=== PATIENT | female | born 1960 | race Caucasian/White ===

== ENCOUNTER 2021-04-23 12:43 | Outpatient (REF) | payer OTHER, SELFPAY ==
--- NOTE | ~2021-04-23 | MM_ITS ---
EXAMINATION: MM SCREENING DIGITAL BREAST TOMOSYNTHESIS, BILATERAL CLINICAL INFORMATION: Screening. Asymptomatic. The lifetime risk of breast cancer based on the Tyrer-Cuzick Model is 15%. COMPARISON: Mammography: 03/14/2020, 01/11/2019, 12/31/2017 TECHNIQUE: Digital breast tomosynthesis is performed in both the craniocaudal and mediolateral oblique views along with computer-aided detection (CAD). Synthesized 2D images are generated from the tomosynthesis. FINDINGS: There are scattered areas of fibroglandular density (ACR BI-RADS breast composition Category b). There are no significant masses, abnormal calcifications, or other abnormalities. Parenchymal pattern is similar to prior studies. No developing density. Skin contours are smooth. MM/MM tomosynthesis screening BI IMPRESSION: No mammographic evidence of malignancy. ASSESSMENT: BI-RADS 1: Negative RECOMMENDATION: Routine annual mammography screening. This patient's information was entered into a reminder system with a target due date for their next mammogram.
== END 2021-04-23 12:44 | disposition home or self-care (01) ==
LOC: HO.MAMMO 12:43
PROVIDERS: PCP Internal Medicine; Visit Provider Internal Medicine
DX: Z12.31 Encounter for screening mammogram for malignant neoplasm of breast (principal)
CPT/HCPCS: 77063; 77067

== ENCOUNTER 2022-04-01 07:47 | Outpatient (REF) | payer OTHER, SELFPAY ==
[2022-04-01 10:48] LABS: Hematocrit 36.9 % (37.0-47.0); Hemoglobin 12.2 g/dl (12.0-16.0); Mean Corpuscular HGB Conc 33.1 g/dl (31.0-35.0); Mean Corpuscular Hemoglobin 31.3 pg (27.0-33.0); Mean Corpuscular Volume 94.6 fL (80.0-98.0); Mean Platelet Volume 10.4 fL (9.4-12.3); Platelet Count 378 X10*3/uL (160-400); Red Cell Distribution Width 12.7 % (11.0-16.0); White Blood Count 8.6 X10*3/uL (4.8-10.8)
[2022-04-01 10:56] LABS: Alanine Aminotransferase 10 U/L (0-31); Albumin Level 4.5 g/dL (3.5-5.0); Alkaline Phosphatase 66 U/L (39-117); Anion Gap 13 (12-20); Aspartate Amino Transferase 13 U/L (5-31); Bilirubin Total 0.6 mg/dL (0.0-1.0); Blood Urea Nitrogen 10 mg/dL (9-16); Calcium 9.3 mg/dL (8.4-10.2); Carbon Dioxide 28 mmol/L (22-29); Chloride 103 mmol/L (96-108); Cholesterol 201 mg/dL; Estimated Glomerular Filt Rate > 60; Glucose Fasting 94 mg/dL (60-99); HDL Cholesterol 44 mg/dL; LDL Cholesterol Calculated 145 mg/dl; Potassium 4.2 mmol/L (3.3-5.1); Sodium 140 mmol/L (135-145); Total Protein 7.3 g/dL (6.5-8.0); Triglycerides 62 mg/dL
[2022-04-01 11:19] LABS: TSH reflex Free T4 1.77 uIU/mL (0.32-4.0)
== END 2022-04-01 07:48 | disposition home or self-care (01) ==
LOC: HO.10HDL 07:47
PROVIDERS: Visit Provider Physician Assistant
DX: Z13.29 Encounter for screening for other suspected endocrine disorder (principal); Z13.220 Encounter for screening for lipoid disorders
CPT/HCPCS: 36415; 80053; 80061; 84443; 85027

== ENCOUNTER 2022-04-04 09:38 | Outpatient (REF) | payer OTHER, SELFPAY ==
--- NOTE | ~2022-04-04 | XR_ITS ---
EXAMINATION: XR CHEST CLINICAL INFORMATION: Exposed to tobacco. COMPARISON: Chest x-ray 07/02/2018 TECHNIQUE: 2 views of the chest were obtained. FINDINGS: No significant abnormality is noted involving the heart, lungs, mediastinum, bony thorax or soft tissues. XR/XR chest 2V IMPRESSION: Unremarkable chest examination.
== END 2022-04-04 09:39 | disposition home or self-care (01) ==
LOC: HO.XRAY 09:38
PROVIDERS: PCP Internal Medicine; Visit Provider Physician Assistant
DX: Z77.22 Contact with and (suspected) exposure to environmental tobacco smoke (acute) (chronic) (principal)
CPT/HCPCS: 71046

== ENCOUNTER 2022-04-25 09:38 | Outpatient (REF) | payer OTHER, SELFPAY ==
--- NOTE | ~2022-04-25 | MM_ITS ---
EXAMINATION: MM SCREENING DIGITAL BREAST TOMOSYNTHESIS, BILATERAL CLINICAL INFORMATION: Screening. Asymptomatic. The lifetime risk of breast cancer based on the Tyrer-Cuzick Model is 14%. COMPARISON: Mammography: 04/23/2021, 03/14/2020, 01/11/2019 TECHNIQUE: Digital breast tomosynthesis is performed in both the craniocaudal and mediolateral oblique views along with computer-aided detection (CAD). Synthesized 2D images are generated from the tomosynthesis. FINDINGS: There are scattered areas of fibroglandular density (ACR BI-RADS breast composition Category b). There are no significant masses, abnormal calcifications, or other abnormalities. There is no developing density or architectural abnormality. The axilla and skin contours are unremarkable. No significant changes. MM/MM tomosynthesis screening BI IMPRESSION: No mammographic evidence of malignancy. ASSESSMENT: BI-RADS 1: Negative RECOMMENDATION: Routine annual mammography screening. This patient's information was entered into a reminder system with a target due date for their next mammogram.
== END 2022-04-25 09:39 | disposition home or self-care (01) ==
LOC: HO.MAMMO 09:38
PROVIDERS: PCP Internal Medicine; Visit Provider Internal Medicine
DX: Z12.31 Encounter for screening mammogram for malignant neoplasm of breast (principal)
CPT/HCPCS: 77063; 77067

== ENCOUNTER 2022-05-24 07:51 | Outpatient (REF) | payer OTHER, SELFPAY ==
[2022-05-24 08:46] LABS: Hematocrit 39.2 % (37.0-47.0); Mean Corpuscular HGB Conc 33.2 g/dl (31.0-35.0); Mean Corpuscular Hemoglobin 30.9 pg (27.0-33.0); Mean Corpuscular Volume 93.1 fL (80.0-98.0); Mean Platelet Volume 9.9 fL (9.4-12.3); Platelet Count 319 X10*3/uL (160-400); Red Blood Count 4.21 X10*6/uL (4.20-5.50); Red Cell Distribution Width 12.2 % (11.0-16.0); White Blood Count 6.8 X10*3/uL (4.8-10.8)
[2022-05-24 09:10] LABS: Iron 84 mcg/dL (30-160); Percent Iron Saturation 22 % (15-50); Total Iron Binding Capacity 376 mcg/dL (228-428); Unsaturated Iron Binding 292 ug/dL
[2022-05-24 09:34] LABS: Ferritin 75 ng/mL (10-250)
[2022-05-24 16:10] LABS: Folate 14.7 ng/mL (> or = 4.0); Vitamin B12 1313 pg/mL (200-900)
== END 2022-05-24 07:52 | disposition home or self-care (01) ==
LOC: HO.LAB 07:51
PROVIDERS: PCP Internal Medicine; Visit Provider Physician Assistant
DX: E53.8 Deficiency of other specified B group vitamins (principal); D50.9 Iron deficiency anemia, unspecified
CPT/HCPCS: 36415; 82607; 82728; 82746; 83540; 85027

== ENCOUNTER 2023-04-01 08:16 | Outpatient (AMB) | payer OTHER, SELFPAY ==
[2023-04-01 08:26] VITALS: BP 110/80; PULSE 78; O2SAT 98; BMI 22.0
--- NOTE | 2023-04-01 08:26 | A.OFFPC_ITS ---
Vital Signs 04/01/23 08:26 Height 5 ft 3 in Weight 124 lb BMI 22.0 BP 110/80 Blood Pressure Location Lt brachial Position Sitting Pulse 78 Pulse Source Pulse Oximeter Pulse Oximetry (%) 98 Oxygen Delivery Method Room Air Intake Visit Reasons: Annual Exam Marketing Assistant Required: No Accompanied by: Self / Same As Patient Allergies No Known Allergies [No Known Allergies*] Allergy (Verified 04/01/23 08:33) Medication List - Last Reconciled 04/01/23 by Jefry Story PA-C cholecalciferol (vitamin D3) 125 mcg PO DAILY cyanocobalamin (vitamin B-12) 1,000 mcg PO DAILY latanoprost 0.005% 1 drp ophthalmic (eye) QPM vitamin E (dl, acetate) 400 units PO TID Tobacco use date assessed: 04/01/23 Dental Screening Dental Screen Date: 04/01/23 Did you have a dental visit in the last 12 months?: Yes Did you have a dental problem in the last 6 months where you did not have access to dental care?: No Was dental information given to patient?: Patient has dentist HPI Annual Exam HPI Details patient is a 62-year-old female here today for a routine annual physical.? This is my 2nd time meeting this 62-year-old female. ? Patient has a past medical history significant for glaucoma and is followed by an account engineer. .. .. Anxiety as much improved on its own, has been exercising more in eating better. Had not had to use any lorazepam ? Colorectal cancer screen: colonoscopy done 2014 polyp found benign results repeat 10 years. .. ?mammogram:? done in April 2022 BI-RADS 1 ?vaccines:? 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 1. Little interest or pleasure in doing things: nearly every day 2. Feeling down, depressed, or hopeless: nearly every day 3. Trouble falling or staying asleep, or sleeping too much: several days 4. Feeling tired or having little energy: not at all 5. Poor appetite or overeating: several days 6. Feeling bad about yourself - or that you are a failure or have let yourself or your family down: not at all 7. Trouble concentrating on things, such as reading the newspaper or watching television: not at all 8. Moving or speaking so slowly that other people could have noticed. Or the opposite - being so fidgety or restless that you have been moving around a lot more than usual: not at all 9. Thoughts that you would be better off or of hurting yourself in some way: not at all Total score: 8 Depression Screening Interpretation: Negative Source: Developed by Drs. Naseem Hammer, Martha Low, Jesse Tran and colleagues, with an educational anders from [employer]. Thrive Questionnaire Date Thrive assessed: 04/01/23 I am a: Patient What is your living situation today?: I have a steady place to live Within the past 12 months, did the food you bought not last and you didn't have the money to get more?: Never true Within the past 12 months, did you worry whether your food would run out before you got money to buy more?: Never true Do you have trouble paying for medicines?: No Do you have trouble getting transportation to medical appointments?: No Do you have trouble paying your heating and electricity bill?: No Do you have trouble taking care of your child, family member or friend?: No Do you have trouble with day-to-day activities such as bathing, preparing meals, shopping, managing finances, etc.?: No Are you currently unemployed and looking for a job?: No Are you interested in more education?: No Please select the resources that you would like help with: None Currently or been in a relationship where the following occur: no concerns reported AUDIT C Alcohol Use Questionnaire (AUDIT-C) 1. How often do you have a drink containing alcohol?: Monthly or less 2. How many drinks containing alcohol do you have on a typical day when you are drinking?: 1 or 2 3. How often do you have six or more drinks on one occasion?: Never Total Score: 1 DARLYN-7 AMB Questionnaire DARLYN-7 Date DARLYN - 7 assessed: 04/01/23 Feeling nervous, anxious, or on edge: 1 = Several days Not being able to stop or control worryin = Several days Worrying too much about different things: 1 = Several days Trouble relaxin = Several days Being so restless that it is hard to sit still: 1 = Several days Becoming easily annoyed or irritable: 1 = Several days Feeling afraid as if something awful might happen: 1 = Several days Total DARLYN-7 score (0-4 normal; 5-9 mild; 10-14 moderate; 15-21 severe): 7 Source: Developed by Drs. Naseem Hammer, Martha Low, Jesse Tarn and colleagues, with an educational anders from [employer]. DARLYN-7 Assessment Billing DARLYN-7 Assessment Tool: DARLYN-7 Assessment 57418 Review of Systems Const Denies body aches, Denies chills, Denies excessive sweating, Denies fatigue, Denies fever(s) and Denies headache(s) Eyes Denies blurry vision ENT Denies dysphagia, Denies vertigo, Denies dizziness, Denies headache(s), Denies hearing loss and Denies tinnitus Card Denies chest pain, Denies chest pain with activity, Denies syncope, Denies irregular heart rhythm and Denies dyspnea Resp Denies chest congestion, Denies cough, Denies hemoptysis, Denies dyspnea and Denies wheezing GI Denies abdominal pain, Denies melena, Denies hematochezia, Denies coffee ground emesis, Denies dysphagia, Denies diarrhea, Denies nausea and Denies vomiting Denies urinary frequency, Denies dysuria, Denies urinary hesitancy and Denies urinary urgency Musc Denies arthralgias, Denies limited range of motion, Denies muscle cramps and Denies muscle weakness Skin/Breast Denies rash and Denies skin ulcer Neuro Denies Abnormal speech present, Denies confusion, Denies vertigo, Denies dizziness, Denies syncope, Denies headache(s), Denies memory loss and Denies seizure-like activity Psych Denies anxiety, Denies confusion, Denies depression, Denies memory loss, Denies panic attacks and Denies paranoia Endo Denies excessive sweating, Denies fatigue, Denies flushing, Denies polydipsia and Denies polyuria Aller/Immun Denies wheezing Physical exam (Primary Care) Vital Signs: Last Vital Signs Pulse 78 04/01/23 08:26 BP 110/80 04/01/23 08:26 Pulse Ox 98 04/01/23 08:26 Oxygen Delivery Method Room Air 04/01/23 08:26 BMI result Body Mass Index 22.0 Tobacco/Smoking Status: Tobacco use Status Tobacco use date assessed 04/01/23 04/01/23 08:31 Patient Tobacco Use Status Never used Tobacco 04/01/23 08:31 e-Cigarette/Vaping Use Never Used 04/01/23 08:31 PHQ-9: PHQ-9 Score PHQ-9: Total score 8 04/01/23 08:36 Depression Screening Interpretation: Negative Thrive Assessment: Date of Thrive Assessment Date Thrive assessed 04/01/23 04/01/23 08:31 Currently or been in a relationship where the following occur: no concerns reported Const General: cooperative, comfortable, no acute distress, alert and awake; No confusion Orientation/consciousness: oriented to person, oriented to place, patient oriented x3 and No confusion HENMT Head: Yes normocephalic Ears: external ears normal and TM's normal bilaterally Face and sinus: No sinus tenderness Mouth: Normal oral and palatal mucosa present and tongue normal Teeth and gingiva: dentition normal and gingiva normal Throat: Yes posterior oropharynx normal, Yes tonsils normal and Yes uvula midline Eyes Conjunctivae: conjunctivae normal Sclerae: sclerae normal Pupils: Equal, round and reactive pupils present EOM: EOMs intact bilaterally Direct Ophthalmoscopy: No no photophobia Neck Neck: Yes no lymphadenopathy, No tender and Yes no JVD Thyroid: Thyroid normal Carotids: no bruits Chest Chest palpation & inspection: no tenderness Resp Effort & Inspection: normal respiratory effort, no audible wheezes, not labored and no stridor Auscultation: no crackles, no rales, no rhonchi and no wheezes Cardio Jugular venous distension: no JVD Rate: regular rate, not bradycardic and not tachycardic Rhythm: regular rhythm Bruits: no carotid bruits Peripheral pulses: Peripheral pulses 2+ throughout GI Inspection: Yes normal to inspection, No abdominal wall ecchymosis and No visible herniation Palpation (GI): Soft to palpation, nontender, no guarding, not rigid and No hepatosplenomegaly present Auscultation: normoactive bowel sounds General: Yes no CVA tenderness Back/Spine/Pelvis Back: no CVA tenderness and No back tenderness Cervical Spine: cervical ROM normal Thoracic/Lumbar Spine: thoracic and lumbar spine normal to inspection, straight leg raise negative bilaterally, No thoraco-lumbar ROM limited and No lumbar spinal tenderness Skin Lesions: no lesions Rashes: no rashes Wounds: no wounds Neuro General: oriented to person, oriented to place, patient oriented x3, CN's II-XI intact bilaterally and No confusion Cranial nerves: Yes Equal, round and reactive pupils present and Yes Normal accommodation reflex present Cognition (Neuro): normal cognition Speech: No Abnormal speech present Gait exam (Neuro): Normal gait present Motor exam (neuro): 5/5 motor strength present throughout Extrem Right upper extremity: full ROM; no cyanosis Left upper extremity: full ROM; no cyanosis Right lower extremity: no edema Left lower extremity: no edema Psych Appearance: grossly normal Mental Status: mental status grossly normal Affect: normal affect Attitude: cooperative Thought process: Normal thought process present Assessment and Plan Assessment & Plan (1) Annual physical exam: Code(s): Z00.00 - Encounter for general adult medical examination without abnormal findings (2) Glaucoma: Code(s): H40.9 - Unspecified glaucoma Qualifiers: Glaucoma stage: mild stage Glaucoma type: open-angle Laterality: bilateral Open angle glaucoma type: primary Qualified Code(s): H40.1131 - Primary open-angle glaucoma, bilateral, mild stage Plan: Patient followed by eye doctor and continues on glaucoma eyedrops with good effect. (3) Elevated vitamin B12 level: Code(s): R74.8 - Abnormal levels of other serum enzymes Plan: Most recent labs showing elevated B12 level, will recheck (4) Screening for diabetes mellitus (DM): Code(s): Z13.1 - Encounter for screening for diabetes mellitus Orders: Orders Vitamin B12 and Folate Today E53.8 - Deficiency of other specified B group vitamins, R74.8 - Abnormal levels of other serum enzymes Comprehensive [place]. Panel Fast Today Z13.1 - Encounter for screening for diabetes mellitus Complete Blood Count no Diff Today D64.9 - Anemia, unspecified Coding Level of Care Code Est Pt Prev Care 40-64y(80552) Diagnoses Annual physical exam Z00.00 Glaucoma H40.1131 Glaucoma stage: mild stage Glaucoma type: open-angle Laterality: bilateral Open angle glaucoma type: primary Elevated vitamin B12 level R74.8 Screening for diabetes mellitus (DM) Z13.1 Additional Codes DARLYN-7 Assessment Billing - DARLYN-7 Assessment Tool: DARLYN-7 Assessment [id number] ([id number])
== END 2023-04-01 08:48 | disposition home or self-care (01) ==
PROVIDERS: PCP Internal Medicine; Visit Provider Physician Assistant
DX: Z00.00 Encounter for general adult medical examination without abnormal findings (principal); H40.1131 Primary open-angle glaucoma, bilateral, mild stage; R74.8 Abnormal levels of other serum enzymes; Z13.1 Encounter for screening for diabetes mellitus
CPT/HCPCS: 99396

== ENCOUNTER 2023-04-23 07:39 | Outpatient (REF) | payer OTHER, SELFPAY ==
[2023-04-23 10:55] LABS: Hematocrit 37.8 % (37.0-47.0); Hemoglobin 12.5 g/dl (12.0-16.0); Mean Corpuscular HGB Conc 33.1 g/dl (31.0-35.0); Mean Corpuscular Hemoglobin 31.4 pg (27.0-33.0); Mean Platelet Volume 10.8 fL (9.4-12.3); Platelet Count 340 X10*3/uL (160-400); Red Blood Count 3.98 X10*6/uL (4.20-5.50); Red Cell Distribution Width 12.3 % (11.0-16.0); White Blood Count 5.8 X10*3/uL (4.8-10.8)
[2023-04-23 11:14] LABS: Alanine Aminotransferase 12 U/L (0-31); Albumin Level 4.4 g/dL (3.5-5.0); Alkaline Phosphatase 60 U/L (39-117); Anion Gap 12 (12-20); Aspartate Amino Transferase 17 U/L (5-31); Bilirubin Total 0.6 mg/dL (0.0-1.0); Blood Urea Nitrogen 14 mg/dL (9-16); Calcium 9.8 mg/dL (8.4-10.2); Carbon Dioxide 27 mmol/L (22-29); Chloride 105 mmol/L (96-108); Estimated Glomerular Filt Rate > 60; Glucose Fasting 95 mg/dL (60-99); Sodium 140 mmol/L (135-145); Total Protein 7.4 g/dL (6.5-8.0)
[2023-04-23 11:40] LABS: Folate 12.4 ng/mL (> or = 4.0); Vitamin B12 586 pg/mL (200-900)
== END 2023-04-23 07:40 | disposition home or self-care (01) ==
LOC: HO.10HDL 07:39
PROVIDERS: Visit Provider Physician Assistant
DX: Z13.1 Encounter for screening for diabetes mellitus (principal); E53.8 Deficiency of other specified B group vitamins; R74.8 Abnormal levels of other serum enzymes; D64.9 Anemia, unspecified
CPT/HCPCS: 36415; 80053; 82607; 82746; 85027

== ENCOUNTER 2023-04-30 09:14 | Outpatient (REF) | payer OTHER, SELFPAY ==
--- NOTE | ~2023-04-30 | MM_ITS ---
EXAMINATION: MM SCREENING DIGITAL BREAST TOMOSYNTHESIS, BILATERAL CLINICAL INFORMATION: Screening. Asymptomatic. COMPARISON: Mammography: 04/25/2022, 04/23/2021, 03/14/2020, and dating back to 2012. TECHNIQUE: Digital breast tomosynthesis is performed in both the craniocaudal and mediolateral oblique views along with computer-aided detection (CAD). Synthesized 2D images are generated from the tomosynthesis. FINDINGS: There are scattered areas of fibroglandular density (ACR BI-RADS breast composition Category b). There are no suspicious masses, suspicious grouped calcifications, or areas of architectural distortion. The parenchymal pattern is stable from prior exams. There are few scattered benign calcifications. MM/MM tomosynthesis screening BI IMPRESSION: No mammographic evidence of malignancy. Stable benign findings. ASSESSMENT: BI-RADS BI-RADS 2 - Benign Findings RECOMMENDATION: Routine annual mammography screening. 1 year F/U This examination should not preclude the clinical evaluation of a suspicious palpable abnormality. This patient's information was entered into a reminder system with a target due date for their next mammogram.
== END 2023-04-30 09:15 | disposition home or self-care (01) ==
LOC: HO.MAMMO 09:14
PROVIDERS: PCP Internal Medicine; Visit Provider Internal Medicine
DX: Z12.31 Encounter for screening mammogram for malignant neoplasm of breast (principal)
CPT/HCPCS: 77063; 77067

== ENCOUNTER → 2023-04-30 09:30 | Outpatient (BNV) | payer OTHER, SELFPAY | PROVIDERS: PCP Internal Medicine; Visit Provider Radiology Diagnostic Radiology | DX: Z12.31 Encounter for screening mammogram for malignant neoplasm of breast (principal) | CPT/HCPCS: 77063; 77067 ==

== ENCOUNTER 2024-04-06 08:13 | Outpatient (AMB) | payer BC, SELFPAY ==
--- NOTE | 2024-04-06 08:32 | A.OFFPC_ITS ---
Vital Signs 04/06/24 08:34 Height 5 ft 3 in Weight 134 lb 8 oz BMI 23.8 BP 130/72 Blood Pressure Location Lt brachial Position Sitting Pulse 74 Pulse Source Pulse Oximeter Pulse Oximetry (%) 95 Oxygen Delivery Method Room Air Intake Visit Reasons: Annual exam Intake Note: Patient is here today for a physical. Cocoa Mill Operator Required: No Psychosocial Rehabilitation Counselor: Not Required per policy Accompanied by: Self / Same As Patient Allergies No Known Allergies [No Known Allergies*] Allergy (Verified 04/06/24 08:39) Medication List - Last Reconciled 04/06/24 by Jefry Story PA-C cholecalciferol (vitamin D3) 125 mcg PO DAILY cyanocobalamin (vitamin B-12) 1,000 mcg PO DAILY latanoprost 0.005% 1 drp ophthalmic (eye) QPM Tobacco use date assessed: 04/06/24 Fall risk assessment: No Falls in past year Last assessed Fall Risk: 04/06/24 Dental Screening Dental Screen Date: 04/06/24 Did you have a dental visit in the last 12 months?: Yes Did you have a dental problem in the last 6 months where you did not have access to dental care?: No Was dental information given to patient?: Patient has dentist HPI Annual exam HPI Details patient is a 63-year-old female here today for a routine annual physical.? ? Patient has a past medical history significant for glaucoma and is followed by an slot machine key person. .. .. Anxiety as much improved on its own, has been exercising more in eating better. Had not had to use any lorazepam .. Borderline high cholesterol: Most recent lipid panel showing slightly elevated cholesterol 201. Will work on dietary modifications. ? Colorectal cancer screen: colonoscopy done 2014 polyp found benign results repeat 10 years. .. ?mammogram:? done in April 2023 BI-RADS 2 ?vaccines:? 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 1. Little interest or pleasure in doing things: not at all 2. Feeling down, depressed, or hopeless: not at all 3. Trouble falling or staying asleep, or sleeping too much: not at all 4. Feeling tired or having little energy: not at all 5. Poor appetite or overeating: not at all 6. Feeling bad about yourself - or that you are a failure or have let yourself or your family down: not at all 7. Trouble concentrating on things, such as reading the newspaper or watching television: not at all 8. Moving or speaking so slowly that other people could have noticed. Or the opposite - being so fidgety or restless that you have been moving around a lot more than usual: not at all 9. Thoughts that you would be better off or of hurting yourself in some way: not at all Total score: 0 Depression Screening Interpretation: Negative Depression Screening Done: Yes 53655 - PHQ-9 Billing: Yes Source: Developed by Drs. Naseem Hammer, Martha Low, Jesse Tran and colleagues, with an educational anders from [employer]. Thrive Questionnaire Date Thrive assessed: 04/06/24 I am a: Patient What is your living situation today?: I have a steady place to live Within the past 12 months, did the food you bought not last and you didn't have the money to get more?: Never true Within the past 12 months, did you worry whether your food would run out before you got money to buy more?: Never true Do you have trouble paying for medicines?: No Do you have trouble getting transportation to medical appointments?: No Do you have trouble paying your heating and electricity bill?: No Do you have trouble taking care of your child, family member or friend?: No Do you have trouble with day-to-day activities such as bathing, preparing meals, shopping, managing finances, etc.?: No Are you currently unemployed and looking for a job?: No Are you interested in more education?: No Currently or been in a relationship where the following occur: No concerns reported THRIVE Score: 0 AUDIT C Alcohol Use Questionnaire (AUDIT-C) 1. How often do you have a drink containing alcohol?: Monthly or less 2. How many drinks containing alcohol do you have on a typical day when you are drinking?: 1 or 2 Total Score: 1 DARLYN-7 AMB Questionnaire DARLYN-7 Date DARLYN - 7 assessed: 04/06/24 Feeling nervous, anxious, or on edge: 0 = Not at all Not being able to stop or control worryin = Not at all Worrying too much about different things: 0 = Not at all Trouble relaxin = Not at all Being so restless that it is hard to sit still: 0 = Not at all Becoming easily annoyed or irritable: 0 = Not at all Feeling afraid as if something awful might happen: 0 = Not at all Total DARLYN-7 score (0-4 normal; 5-9 mild; 10-14 moderate; 15-21 severe): 0 Source: Developed by Drs. Naseem Hammer, Martha Low, Jesse Tran and colleagues, with an educational anders from [employer]. DARLYN-7 Assessment Billing DARLYN-7 Assessment Tool: DARLYN-7 Assessment 40249 Review of Systems Const Denies body aches, Denies chills, Denies excessive sweating, Denies fatigue, Denies fever(s) and Denies headache(s) Eyes Denies blurry vision ENT Denies dysphagia, Denies vertigo, Denies dizziness, Denies headache(s), Denies hearing loss and Denies tinnitus Card Denies chest pain, Denies chest pain with activity, Denies syncope, Denies irregular heart rhythm and Denies dyspnea Resp Denies chest congestion, Denies cough, Denies hemoptysis, Denies dyspnea and Denies wheezing GI Denies abdominal pain, Denies melena, Denies hematochezia, Denies coffee ground emesis, Denies dysphagia, Denies diarrhea, Denies nausea and Denies vomiting Denies urinary frequency, Denies dysuria, Denies urinary hesitancy and Denies urinary urgency Musc Denies arthralgias, Denies limited range of motion, Denies muscle cramps and Denies muscle weakness Skin/Breast Denies rash and Denies skin ulcer Neuro Denies Abnormal speech present, Denies confusion, Denies vertigo, Denies dizzine ss, Denies syncope, Denies headache(s), Denies memory loss and Denies seizure- like activity Psych Denies anxiety, Denies confusion, Denies depression, Denies memory loss, Denies panic attacks and Denies paranoia Endo Denies excessive sweating, Denies fatigue, Denies flushing, Denies polydipsia and Denies polyuria Aller/Immun Denies wheezing Physical exam (Primary Care) BMI result Body Mass Index 23.8 Tobacco/Smoking Status: Tobacco use Status Tobacco use date assessed 04/01/23 07 08:31 Patient Tobacco Use Status Never used Tobacco 04/01/23 08:31 e-Cigarette/Vaping Use Never Used 04/01/23 08:31 Depression Screening Interpretation: Negative Thrive Assessment: Date of Thrive Assessment Date Thrive assessed 04/01/23 07 08:31 Currently or been in a relationship where the following occur: No concerns reported Const General: cooperative, comfortable, no acute distress, alert and awake; No confusion Orientation/consciousness: oriented to person, oriented to place, patient oriented x3 and No confusion HENMT Head: Yes normocephalic Ears: external ears normal and TM's normal bilaterally Face and sinus: No sinus tenderness Mouth: Normal oral and palatal mucosa present and tongue normal Teeth and gingiva: dentition normal and gingiva normal Throat: Yes posterior oropharynx normal, Yes tonsils normal and Yes uvula midline Eyes Conjunctivae: conjunctivae normal Sclerae: sclerae normal Pupils: Equal, round and reactive pupils present EOM: EOMs intact bilaterally Direct Ophthalmoscopy: No no photophobia Neck Neck: Yes no lymphadenopathy, No tender and Yes no JVD Thyroid: Thyroid normal Carotids: no bruits Chest Chest palpation & inspection: no tenderness Resp Effort & Inspection: normal respiratory effort, no audible wheezes, not labored and no stridor Auscultation: no crackles, no rales, no rhonchi and no wheezes Cardio Jugular venous distension: no JVD Rate: regular rate, not bradycardic and not tachycardic Rhythm: regular rhythm Bruits: no carotid bruits Peripheral pulses: Peripheral pulses 2+ throughout GI Inspection: Yes normal to inspection, No abdominal wall ecchymosis and No visible herniation Palpation (GI): Soft to palpation, nontender, no guarding, not rigid and No hep atosplenomegaly present Auscultation: normoactive bowel sounds General: Yes no CVA tenderness Back/Spine/Pelvis Back: no CVA tenderness and No back tenderness Cervical Spine: cervical ROM normal Thoracic/Lumbar Spine: thoracic and lumbar spine normal to inspection, straight leg raise negative bilaterally, No thoraco-lumbar ROM limited and No lumbar spinal tenderness Skin Lesions: no lesions Rashes: no rashes Wounds: no wounds Neuro General: oriented to person, oriented to place, patient oriented x3, CN's II-XI intact bilaterally and No confusion Cranial nerves: Yes Equal, round and reactive pupils present and Yes Normal accommodation reflex present Cognition (Neuro): normal cognition Speech: No Abnormal speech present Gait exam (Neuro): Normal gait present Motor exam (neuro): 5/5 motor strength present throughout Extrem Right upper extremity: full ROM; no cyanosis Left upper extremity: full ROM; no cyanosis Right lower extremity: no edema Left lower extremity: no edema Psych Appearance: grossly normal Mental Status: mental status grossly normal Affect: normal affect Attitude: cooperative Thought process: Normal thought process present Assessment and Plan Assessment & Plan (1) Annual physical exam: Code(s): Z00.00 - Encounter for general adult medical examination without abnormal findings (2) Glaucoma: Code(s): H40.9 - Unspecified glaucoma Qualifiers: Glaucoma type: open-angle Open angle glaucoma type: primary Laterality: bilateral Glaucoma stage: mild stage Qualified Code(s): H40.1131 - Primary open-angle glaucoma, bilateral, mild stage Plan: Patient followed by eye doctor and continues on glaucoma eyedrops with good effect. (3) Elevated vitamin B12 level: Code(s): R74.8 - Abnormal levels of other serum enzymes Plan: Most recent labs showing elevated B12 level, will recheck (4) Screening for diabetes mellitus (DM): Code(s): Z13.1 - Encounter for screening for diabetes mellitus (5) Borderline high cholesterol: Code(s): E78.9 - Disorder of lipoprotein metabolism, unspecified Plan: Patient has a history of borderline high total cholesterol. No need for medication at this time. Patient has low CV risk She will work on lifestyle and dietary modifications. Orders: Orders Vitamin B12 and Folate Today E53.8 - Deficiency of other specified B group vitamins, R74.8 - Abnormal levels of other serum enzymes Comprehensive [place]. Panel Fast Today Z13.1 - Encounter for screening for diabetes mellitus Lipid Panel Today E78.9 - Disorder of lipoprotein metabolism, unspecified Complete Blood Count no Diff Today E78.9 - Disorder of lipoprotein metabolism, unspecified Referrals CREATIVE WRITER Referral Z12.4 - Encounter for screening for malignant neoplasm of cervix Coding Level of Care Code Est Pt Prev Care 40-64y(41350) Diagnoses Annual physical exam Z00.00 Primary open angle glaucoma (POAG) of both eyes, mild stage H40.1131 Glaucoma type: open-angle Open angle glaucoma type: primary Laterality: bilateral Glaucoma stage: mild stage Elevated vitamin B12 level R74.8 Screening for diabetes mellitus (DM) Z13.1 Borderline high cholesterol E78.9 Additional Codes DARLYN-7 Assessment Billing - DARLYN-7 Assessment Tool: DARLYN-7 Assessment 73906 ([id number])
[2024-04-06 08:34] VITALS: BP 130/72; PULSE 74; O2SAT 95; BMI 23.8
== END 2024-04-06 09:04 | disposition home or self-care (01) ==
PROVIDERS: PCP Internal Medicine; Visit Provider Physician Assistant
DX: Z00.00 Encounter for general adult medical examination without abnormal findings (principal); H40.1131 Primary open-angle glaucoma, bilateral, mild stage; R74.8 Abnormal levels of other serum enzymes; Z13.1 Encounter for screening for diabetes mellitus; E78.9 Disorder of lipoprotein metabolism, unspecified
CPT/HCPCS: 99396

== ENCOUNTER 2024-04-07 07:38 | Outpatient (REF) | payer BC, SELFPAY ==
[2024-04-07 11:17] LABS: Hematocrit 36.8 % (37.0-47.0); Hemoglobin 12.3 g/dl (12.0-16.0); Mean Corpuscular HGB Conc 33.4 g/dl (31.0-35.0); Mean Corpuscular Volume 92.7 fL (80.0-98.0); Mean Platelet Volume 10.3 fL (9.4-12.3); Platelet Count 316 X10*3/uL (160-400); Red Blood Count 3.97 X10*6/uL (4.20-5.50); Red Cell Distribution Width 13.2 % (11.0-16.0); White Blood Count 5.8 X10*3/uL (4.8-10.8)
[2024-04-07 11:28] LABS: Alanine Aminotransferase 12 U/L (0-31); Albumin Level 4.3 g/dL (3.5-5.0); Alkaline Phosphatase 63 U/L (39-117); Anion Gap 14 (12-20); Aspartate Amino Transferase 16 U/L (5-31); Bilirubin Total 0.5 mg/dL (0.0-1.0); Blood Urea Nitrogen 11 mg/dL (9-16); Calcium 9.7 mg/dL (8.4-10.2); Carbon Dioxide 25 mmol/L (22-29); Chloride 106 mmol/L (96-108); Cholesterol 190 mg/dL (<200); Estimated Glomerular Filt Rate > 60; Glucose Fasting 105 mg/dL (60-99); HDL Cholesterol 45 mg/dL (>40); LDL Cholesterol Calculated 133 mg/dL (<100); Potassium 3.7 mmol/L (3.3-5.1); Sodium 141 mmol/L (135-145); Total Protein 7.4 g/dL (6.5-8.0); Triglycerides 60 mg/dL (<150)
[2024-04-07 12:05] LABS: Folate 12.5 ng/mL (> or = 4.0); Vitamin B12 1557 pg/mL (200-900)
== END 2024-04-07 07:39 | disposition home or self-care (01) ==
LOC: HO.10HDL 07:38
PROVIDERS: Visit Provider Physician Assistant
DX: E78.9 Disorder of lipoprotein metabolism, unspecified (principal); Z13.1 Encounter for screening for diabetes mellitus; E53.8 Deficiency of other specified B group vitamins; R74.8 Abnormal levels of other serum enzymes
CPT/HCPCS: 36415; 80053; 80061; 82607; 82746; 85027

== ENCOUNTER 2024-05-02 09:34 | Outpatient (REF) | payer BC, SELFPAY ==
--- NOTE | ~2024-05-02 | MM_ITS ---
EXAMINATION: MM SCREENING DIGITAL BREAST TOMOSYNTHESIS, BILATERAL CLINICAL INFORMATION: Screening. Asymptomatic. COMPARISON: Mammography: This study is compared with prior exams dating back to 2019. TECHNIQUE: Digital breast tomosynthesis is performed in both the craniocaudal and mediolateral oblique views along with computer-aided detection (CAD). Synthesized 2D images are generated from the tomosynthesis. FINDINGS: There are scattered areas of fibroglandular density (ACR BI-RADS breast composition Category b). There are no significant masses, abnormal calcifications, or other abnormalities. MM/MM tomosynthesis screening BI IMPRESSION: No mammographic evidence of malignancy. ASSESSMENT: BI-RADS BI-RADS 1 - Negative RECOMMENDATION: Routine annual mammography screening. 1 year F/U This examination should not preclude the clinical evaluation of a suspicious palpable abnormality. This patient's information was entered into a reminder system with a target due date for their next mammogram. Electronically signed by: Kamini Briones MD 05/30/2024 09:52 AM EDT
== END 2024-05-02 09:35 | disposition home or self-care (01) ==
LOC: HO.MAMMO 09:34
PROVIDERS: PCP Internal Medicine; Visit Provider Internal Medicine
DX: Z12.31 Encounter for screening mammogram for malignant neoplasm of breast (principal)
CPT/HCPCS: 77063; 77067

== ENCOUNTER → 2024-05-02 09:45 | Outpatient (BNV) | payer BC, SELFPAY | PROVIDERS: PCP Internal Medicine; Visit Provider Radiology Diagnostic Radiology | DX: Z12.31 Encounter for screening mammogram for malignant neoplasm of breast (principal) | CPT/HCPCS: 77063; 77067 ==

== ENCOUNTER 2024-07-15 13:08 | Outpatient (AMB) | payer BC, SELFPAY ==
--- NOTE | 2024-07-15 13:12 | MHC.OFFVIS ---
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 She is doing well with no concerns. Urgency of urination and stress incontinence w/coughing w/muscle pull, hydrates w/ 33oz.or more a day. Up voiding 1-2x/night. Attempting to eat a healthy diet with calcium and vitamin D and stays active with exercise. Currently not sexually active, partner has health concerns. Denies any vaginal irritation, some dryness. STI testing offered; she declined. Last pap smear; approx. 10yrs. ago, normal history. Last mammogram; 2023. Colonoscopy is planned for 2024. Denies any family history of ovarian or colon cancer. FH breast cancer-mom. [facility] Medical History (Updated 07/15/24 @ 13:38 by Gabi Quiros CNM) Glaucoma Surgical History No pertinent past surgical history Family History (Updated 07/15/24 @ 13:16 by PANTERA Rico) Mother Lung cancer History of breast cancer Father Non-Hodgkin lymphoma Brother Myeloma Social History (Updated 04/06/24 @ 08:46 by Jefry Story PA-C) Housing: House Alcohol intake: current Alcohol intake frequency: holidays/special occasions only Alcohol type: wine Patient Tobacco Use Status: Never used Tobacco e-Cigarette/Vaping Use: Never Used Second Hand Smoke Exposure: No service: No Current occupational status: employed 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 Cognitive needs: No Hearing needs: No Vision needs: Yes Female Reproductive History Menstrual Menopause type: natural Total pregnancies: 0 Date of Mammogram: 05/02/24 Review of Systems Const All systems reviewed & are unremarkable except as noted in HPI and below Reports as per HPI Eyes Reports no additional complaints ENT Reports no additional complaints Card Reports no additional complaints Resp Reports no additional complaints GI Reports as per HPI and Reports no additional complaints Reports as per HPI Musc Reports no additional complaints Skin/Breast Reports as per HPI Neuro Reports no additional complaints Psych Reports no additional complaints Endo Reports no additional complaints Jac/Lymph Reports no additional complaints Aller/Immun Reports no additional complaints Physical Exam Vital Signs: Last Vital Signs BP 102/64 07/15/24 13:15 BMI result Body Mass Index 22.5 Const General: cooperative, healthy appearing, no acute distress, well developed and alert Orientation/consciousness: patient oriented x3 HEENT Head: Yes normal to inspection Eyes General: appearance normal, both eyes and all related structures Neck Neck: Yes normal visual inspection Thyroid: Thyroid normal Chest Chest palpation & inspection: normal inspection of the chest and other (no puckering, dimpling, peau de orange, retraction, discharge, masses) Breast/axilla inspection: normal inspection of the breasts Breast/axilla palpation: normal palpation of the breasts Resp Effort & Inspection: normal respiratory effort GI Inspection: Yes normal to inspection Palpation (GI): Soft to palpation Rectal Exam - Female: deferred Other: Very tense throughout pelvic exam General: Yes bladder normal to palpation External Female Exam: normal external appearance and normal appearance of the urethra Speculum Exam - Vagina: normal appearance of the vagina, normal palpation, normal vaginal discharge, vagina atrophic (Moderate, small introitus) and tenderness (Secondary to atrophy) Speculum Exam - Cervix: normal appearance of the cervix, normal palpation and Other cervical findings present (Atrophy, bled slightly with Pap) Bimanual exam- vagina & uterus: normal bimanual exam, normal palpation, uterine size normal, bladder normal to palpation, normal palpation and non-tender Bimanual Exam- Adnexa, other: no masses Skin General skin exam: no rashes or lesions noted Rashes: no rashes Neuro General: patient oriented x3 Cognition (Neuro): normal cognition Extrem General: Yes normal to inspection Psych Attitude: cooperative Thought process: Normal thought process present Assessment & Plan Assessment & Plan (1) Encounter for well woman exam with routine gynecological exam: Code(s): Z01.419 - Encounter for gynecological examination (general) (routine) without abnormal findings Category: Medical Plan Discussed: Current recommendations for pap smears per ASCCP guidelines. Breast awareness, periodic self breast exams and yearly mammogram. Maintain a healthy lifestyle, well balanced diet including Calcium 1,200 mg and Vitamin D 600 IU daily, and routine exercise. Vaginal atrophy and treatment options-defer she does not feel it is necessary at this time. Recommend urology referral for symptoms, she wants to see if they improve once her coughing settles down and will notify the office if she would like a referral sent in. Reviewed dietary avoidances for bladder triggers, hydrate mostly with water. She has a follow up with her primary care for the coughing and a chest x-ray plan today. Contact the office with any postmenopausal bleeding. Patient verbalizes understanding and agrees to the plan of care. She was given opportunity to ask questions and all questions were answered to the best of my ability. RTO in 1 year for annual guest relations receptionist exam. This note is constructed using voice recognition software. While every effort has been made to ensure accuracy, hopper filler errors may have been included. Orders: Orders PAP + HPV E6/E7 rfx 18/45 Today Z01.419 - Encounter for gynecological examination (general) (routine) without abnormal findings Coding Level of Care Code New Pt Prev Care >65yr (39800) Diagnoses Encounter for well woman exam with routine gynecological exam Z01.419
[2024-07-15 13:15] VITALS: BP 102/64; BMI 22.5
== END 2024-07-15 14:13 | disposition home or self-care (01) ==
LOC: HO.HWS 13:09
PROVIDERS: PCP Internal Medicine; Visit Provider Advanced Practice Midwife
DX: Z01.419 Encounter for gynecological examination (general) (routine) without abnormal findings (principal)
CPT/HCPCS: 99387

== ENCOUNTER 2024-07-15 13:08 | Outpatient (REF) | payer BC, SELFPAY ==
--- NOTE | ~2024-07-15 | XR_ITS ---
EXAMINATION: XR CHEST CLINICAL INFORMATION: Cough for 2 weeks. COMPARISON: Most recent chest radiograph dated 04/04/2022. TECHNIQUE: 2 views of the chest were obtained. FINDINGS: Diffuse interstitial prominence with patchy bilateral airspace opacities in the lung bases. Findings are new when compared to the prior examination. No pleural effusion or pneumothorax. Stable cardiomediastinal silhouette. XR/XR chest 2V IMPRESSION: Interstitial prominence with patchy bilateral airspace opacities, new when compared to the prior examination. Findings can be seen in the setting of an infectious or inflammatory process, including viral pneumonia. Electronically signed by: Elie Robles MD 07/15/2024 04:28 PM EDT
== END 2024-07-15 13:09 | disposition home or self-care (01) ==
LOC: HO.XRAY 13:08
PROVIDERS: Absent Provider Advanced Practice Midwife; PCP Internal Medicine; Visit Provider Physician Assistant
DX: R05.9 Cough, unspecified (principal)
CPT/HCPCS: 71046

== ENCOUNTER 2024-07-15 15:29 | Outpatient (REF) | payer BC, SELFPAY ==
[2024-07-18 11:57] LABS: HPV 16,18/45 See PAP report
== END 2024-07-15 15:30 | disposition home or self-care (01) ==
LOC: HO.LNP 15:29
PROVIDERS: Visit Provider Advanced Practice Midwife
DX: Z01.419 Encounter for gynecological examination (general) (routine) without abnormal findings (principal)
CPT/HCPCS: 87624; 88175

== ENCOUNTER 2024-07-28 16:13 | Outpatient (AMB) | payer BC, SELFPAY ==
--- NOTE | 2024-07-28 16:09 | A.OFFVIS_ITS ---
Intake Visit Reasons: TV pap results - [phone] Allergies No Known Allergies [No Known Allergies*] Allergy (Verified 07/15/24 13:15) HPI Comments Details: Tele clayton visit 16:24-16:40. I spent 16 minutes speaking with the patient on the phone plus an additional 5 minutes reviewing the chart and 5 minutes updating the medical record for a total of 26minutes. Patient unable to use video portion of phone, requested call back on land line. Patient presents via phone to discuss: Pap smear results and several questions and concerns. Prior Pap 10 years ago-no records available, patient reports all was negative. [facility] Medical History (Updated 07/28/24 @ 16:44 by Gabi Quiros CNM) History of abnormal cervical Pap smear Glaucoma Surgical History No pertinent past surgical history Family History (Updated 07/15/24 @ 13:16 by PANTERA Rico) Mother Lung cancer History of breast cancer Father Non-Hodgkin lymphoma Brother Myeloma Social History (Updated 04/06/24 @ 08:46 by Jefry Story PA-C) Housing: House Alcohol intake: current Alcohol intake frequency: holidays/special occasions only Alcohol type: wine Patient Tobacco Use Status: Never used Tobacco e-Cigarette/Vaping Use: Never Used Second Hand Smoke Exposure: No service: No Current occupational status: employed 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 Cognitive needs: No Hearing needs: No Vision needs: Yes Telehealth Telehealth Telehealth Platform: Telephone Location of provider rendering services: practice address Location of patient: address on file Patient Identification confirmed using: Name, : Yes Telehealth method: voice only Patient verbally consented to treatment: Yes Patient verbally consented to billing insurance company: Yes Patient informed of any privacy concerns related to visit: Yes Results Reviewed Results Reviewed: Name: YaraAnn A Age/Sex: 64/F Attending: Gabi Quiros CNM : 1960 Submitted by: Gabi Quiros CNM Copies to: MR #: [id number] Status: DEP REF Collected: 07/15/24 Location: [facility] Received: 07/18/24 Interpretation ABNORMAL PAP TEST. Satisfactory for evaluation, with mildly dysplastic squamous cells / HPV cytopathic change (MELANIE 1; low grade squamous intraepithelial lesion). Atrophic. HPV mRNA E6/E7: DETECTED This assay detects E6/E7 viral messenger RNA (mRNA) from 14 high-risk HPV types (16, 18, 31, 33, 35, 39, 45, 51, 52, 56, 58, 59, 66, 68) HPV Type 16 RNA: Not Detected HPV Type 18/45 RNA: Not Detected HPV testing performed by [facility], [place], [place]. See reference laboratory portion of the EMR for entire report. Clinical Information LMP: Unknown date Previous PAP test: Unknown date/findings Material Received ThinPrep-Vaginal/Cervical Electronically Signed By: Claire Mason MD 07/21/24 [id number] As of July 06, 2024, the PAP screening and HPV testing will be performed at [facility] (CLIA#[id number]), [address] [place] [address]. Testing for HPV was performed using the [employer]00 system. The presence of HPV is the female genital tract is associated with a number of diseases, including cervical carcinoma. The HPV DNA high risk pool test for HPV 31, 33, 35, 39, 45, 51, 52, 56, 58, 59, 66 and 68. The testing for HPV 16 and 18 genotypes has also been performed. A positive result indicates detection of nucleic acid sequences from one or more subtypes, whereas negative result indicates such sequences were not detected. Technical services and auto mated prescreening were performed by the [employer] [facility]. The Pap Test is a screening procedure with the inherent possibility of both false negative and false positive results. Results should be interpreted in the context of historic and current clinical findings. Reliability of the Pap Test is enhanced by performing the test on a regular repetitive basis. Patient: Ann Livingston Age/Sex: 64/F MR#: [id number] Page 1 of 1 Assessment & Plan Assessment & Plan (1) Abnormal Pap smear of cervix: Code(s): R87.619 - Unspecified abnormal cytological findings in specimens from cervix uteri Qualifiers: Abnormal Pap type: unspecified Qualified Code(s): R87.619 - Unspecified abnormal cytological findings in specimens from cervix uteri Plan Discussed: Pap smear results. Progression of abnormal changes from ASCUS to cervical cancer, HPV results, mode of transmission, screening methods, diagnostic procedures-colposcopy for further information evaluation and treatment plan of care, including LEEP procedures if indicated, or monitoring. She is agreeable to schedule the colposcopy with Dr. Farmer. All of her questions and concerns were addressed to the best of my ability and shared decision making. She is agreeable to the plan of care. This note is constructed using voice recognition software. While every effort has been made to ensure accuracy, territory service representative errors may have been included. Coding Level of Care Code Tele Est Pt Level 3 (42219) Diagnoses Abnormal cervical Papanicolaou smear, unspecified abnormal pap finding R87.619 Abnormal Pap type: unspecified
== END 2024-07-28 16:41 | disposition home or self-care (01) ==
LOC: HO.HWS 16:13
PROVIDERS: PCP Internal Medicine; Visit Provider Advanced Practice Midwife
DX: R87.619 Unspecified abnormal cytological findings in specimens from cervix uteri (principal)
CPT/HCPCS: 99442

== ENCOUNTER 2024-08-01 07:48 | Outpatient (AMB) | payer BC, SELFPAY ==
--- NOTE | 2024-08-01 07:49 | MHC.OFFVIS ---
Vital Signs 08/01/24 08:20 Height 5 ft 3 in Weight 123 lb BMI 21.8 BP 126/82 Intake Visit Reasons: Colposcopy Area Plant Manager Required: No Information Interpreted: non-clinical & clinical Industrial Gas Service Helper: Industrial Gas Service Helper Present (Priya MOTT) Accompanied by: Self / Same As Patient Allergies No Known Allergies [No Known Allergies*] Allergy (Verified 08/01/24 08:21) Post menopausal: Yes HPI Comments Details: Presenting for abnormal Pap smear showing low-grade LUIS, HPV E6 E7 positive, HPV 16/18/45 negative [facility] Medical History History of abnormal cervical Pap smear Glaucoma Surgical History No pertinent past surgical history Family History Mother Lung cancer History of breast cancer Father Non-Hodgkin lymphoma Brother Myeloma Social History Housing: House Alcohol intake: current Alcohol intake frequency: holidays/special occasions only Alcohol type: wine Patient Tobacco Use Status: Never used Tobacco e-Cigarette/Vaping Use: Never Used Second Hand Smoke Exposure: No service: No Current occupational status: employed 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 Cognitive needs: No Hearing needs: No Vision needs: Yes Review of Systems Const All systems reviewed & are unremarkable except as noted in HPI and below Physical Exam General: Yes no CVA tenderness External Female Exam: normal external appearance and normal appearance of the urethra Speculum Exam - Vagina: normal appearance of the vagina, normal palpation, no lesions and no masses Speculum Exam - Cervix: normal appearance of the cervix, normal palpation, no lesions, no masses and nontender Bimanual exam- vagina & uterus: normal bimanual exam, normal palpation, uterine size normal, normal palpation, uterine shape normal, No Cervical tenderness present and non-tender Bimanual Exam- Adnexa, other: normal adnexae Back/Spine/Pelvis Back: no CVA tenderness Office Procedures Colposcopy Colposcopy: Pre-Procedure Counseling: Before beginning the procedure, I conducted comprehensive counseling with the patient. We thoroughly discussed the procedure itself, including its details, alternatives, and all associated risks. This included but not limited to the following complications such as bleeding, infection, and injury to the vagina, bladder, and vessels, as well as the potential need for transfusion with all its associated risks. Subsequently, the patient sign the consent. Pap smear result: LSIL/HPV E6 E7 positive. Procedure: During the procedure, the following steps were performed: A speculum was inserted, and acetic acid was applied. Colposcopy was conducted, allowing visualization of the transformation zone. Acetowhite lesions were identified at the 1+4 o'clock position. Cervical biopsies were obtained from the 1+4 o'clock position. Vaginoscopy of the upper vagina revealed no evidence of aceto-white lesions. Hemostasis was achieved using Monsel solution, and the patient tolerated the procedure well. Post-Procedure Instructions: The patient was advised to promptly contact the office or the after hours answering service or go to the emergency room if experiencing a temperature exceeding 100.4?F, abdominal pain, nausea/vomiting, or bleeding. Additionally, the patient was instructed to abstain from vaginal intercourse and bathtub use. The patient confirmed understanding of these instructions. Discharge Instructions: The patient was instructed to schedule a follow-up appointment in 2 weeks for further evaluation and management. Please note that this note was generated using a voice recognition program, and errors may have occurred during lumber straightener. 16029-Ddclrzjnng of cervix including upper vagina and biopsy Procedure code (CPT) selection complete Assessment & Plan Assessment & Plan (1) LGSIL on Pap smear of cervix: Comment: HPV E6 E7 positive Code(s): R87.612 - Low grade squamous intraepithelial lesion on cytologic smear of cervix (LGSIL) Category: Medical Plan: Discussed with the patient the result of her abnormal pap, its significance, risk of progression, persistence, and regression. the false positive/negative rate of a Pap smear as a screening test in detecting cervical cancer and the indication for a diagnostic test -colposcopy, biopsy, endocervical curettage. The patient verbalized understanding and agreed with the plan, all questions answered. Colpo/biopsy done, see procedure note Orders: Orders AMB Colposcopy Today R87.612 - Low grade squamous intraepithelial lesion on cytologic smear of cervix (LGSIL) Coding Level of Care Code Procedure Only Diagnoses LGSIL on Pap smear of cervix R87.612 CPT Codes Colposcopy - CPT: 70857-Vxjfsjzbhy of cervix including upper vagina and biopsy ([id number])
[2024-08-01 08:20] VITALS: BP 126/82; BMI 21.8
== END 2024-08-01 09:27 | disposition home or self-care (01) ==
LOC: HO.HWS 07:48
PROVIDERS: PCP Internal Medicine; Visit Provider Obstetrics & Gynecology
DX: R87.612 Low grade squamous intraepithelial lesion on cytologic smear of cervix (LGSIL) (principal)
CPT/HCPCS: 57455

== ENCOUNTER 2024-08-01 07:48 | Outpatient (REF) | payer BC, SELFPAY | END 2024-08-01 07:49 | disposition home or self-care (01) | LOC: HO.LNP 07:48 | PROVIDERS: PCP Internal Medicine; Visit Provider Obstetrics & Gynecology | DX: R87.612 Low grade squamous intraepithelial lesion on cytologic smear of cervix (LGSIL) (principal) | CPT/HCPCS: 57455; 88305; 88342; 88360 ==

== ENCOUNTER 2024-08-04 15:25 | Outpatient (REF) | payer BC, SELFPAY | END 2024-08-04 15:26 | disposition home or self-care (01) | LOC: HO.XRAY 15:25 | PROVIDERS: PCP Internal Medicine; Visit Provider Physician Assistant | DX: J20.9 Acute bronchitis, unspecified (principal) | CPT/HCPCS: 71046 ==

== ENCOUNTER 2024-08-29 14:48 | Outpatient (AMB) | payer BC, SELFPAY ==
--- NOTE | 2024-08-29 14:51 | A.OFFVIS_ITS ---
Intake Visit Reasons: COLPO results Speech Pathology Assistant: Speech Pathology Assistant Present (Arina) Accompanied by: Self / Same As Patient Allergies No Known Allergies [No Known Allergies*] Allergy (Verified 08/29/24 14:51) HPI Comments Details: Presenting post colpo for follow-up. The patient is doing well with no complaints. The pathology showed the following: A. Cervix, 1 o'clock, biopsy: Squamous atrophy; no endocervical epithelium identified; multiple additional levels examined. B. Cervix, 4 o'clock, biopsy: Squamous atrophy; no endocervical epithelium identified [facility] Medical History History of abnormal cervical Pap smear Glaucoma Surgical History No pertinent past surgical history Family History Mother Lung cancer History of breast cancer Father Non-Hodgkin lymphoma Brother Myeloma Social History Housing: House Alcohol intake: current Alcohol intake frequency: holidays/special occasions only Alcohol type: wine Patient Tobacco Use Status: Never used Tobacco e-Cigarette/Vaping Use: Never Used Second Hand Smoke Exposure: No service: No Current occupational status: employed 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 Discussed with the patient the sensitivity specificity, positive and negative predictive value in detecting cervical cancer in addition discussed the regression, persistence and progression rates. Recommended co- testing in 12 months, if cytology and or HPV are abnormal will proceed was colposcopy biopsy and endocervical curettage, if lesions gets worse or stays persistent for 2 years will proceed with loop electric excision procedure. Instructions given to the patient to schedule a co test appointment in 1 year. All questions answered the patient verbalized understanding. Coding Level of Care Code Est Pt Level 3 (66434) Diagnoses LGSIL on Pap smear of cervix R87.612
== END 2024-08-29 15:13 | disposition home or self-care (01) ==
LOC: HO.HWS 14:48
PROVIDERS: PCP Internal Medicine; Visit Provider Obstetrics & Gynecology
DX: R87.612 Low grade squamous intraepithelial lesion on cytologic smear of cervix (LGSIL) (principal)
CPT/HCPCS: 99213

== ENCOUNTER 2024-09-12 09:07 | Outpatient (REF) | payer BC, SELFPAY ==
--- NOTE | ~2024-09-12 | XR_ITS ---
EXAMINATION: XR CHEST CLINICAL INFORMATION: J20.9 - Acute bronchitis, unspecified COMPARISON: Chest 08/04/2024 TECHNIQUE: 2 views of the chest were obtained. FINDINGS: The lungs are well-expanded and clear acute pneumonic process. There is platelike atelectasis right middle lobe. The heart size and pulmonary vascularity is normal. There is mild dextroscoliosis. No aggressive lytic or sclerotic process seen. XR/XR chest 2V IMPRESSION: Right middle lobe platelike atelectasis. Electronically signed by: Neto Husain MD 09/12/2024 09:42 AM EST
== END 2024-09-12 09:08 | disposition home or self-care (01) ==
LOC: HO.XRAY 09:07
PROVIDERS: PCP Physician Assistant; Visit Provider Physician Assistant
DX: J20.9 Acute bronchitis, unspecified (principal)
CPT/HCPCS: 71046

== ENCOUNTER → 2024-09-12 09:15 | Outpatient (BNV) | payer BC, SELFPAY | PROVIDERS: PCP Physician Assistant; Visit Provider Radiology Diagnostic Radiology | DX: J20.9 Acute bronchitis, unspecified (principal); J98.11 Atelectasis | CPT/HCPCS: 71046 ==

== ENCOUNTER 2024-11-16 15:17 | Outpatient (AMB) | payer BC, SELFPAY ==
[2024-11-16 15:23] VITALS: BP 128/80; PULSE 91; O2SAT 98; BMI 22.5
--- NOTE | 2024-11-16 15:23 | MHC.OFFVIS ---
Vital Signs 11/16/24 15:23 Height 5 ft 3 in Weight 127 lb BMI 22.5 BP 128/80 Blood Pressure Location Rt brachial Position Sitting Pulse 91 Pulse Source Doppler Pulse Oximetry (%) 98 Oxygen Delivery Method Room Air Intake Visit Reasons: Atelectasis Allergies No Known Allergies [No Known Allergies*] Allergy (Verified 08/29/24 14:51) HPI HPI Atelectasis: Details: 64-year-old lady, nonsmoker, with no underlying, but family history lung cancer in her mother referred for evaluation of abnormal chest x-ray that demonstrates persistent atelectasis. Patient denies any pulmonary related concerns or complaints. She does complain of some musculoskeletal back pain. She denies exposure to industrial dusts. 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 Cognitive needs: No Hearing needs: No Vision needs: Yes Review of Systems Card Denies dyspnea and Denies dyspnea on exertion Resp Denies cough, Denies excessive phlegm production, Denies dyspnea, Denies dyspnea on exertion and Denies wheezing Aller/Immun Denies wheezing Physical Exam Vital Signs: Last Vital Signs Pulse 91 11/16/24 15:23 BP 128/80 11/16/24 15:23 Pulse Ox 98 11/16/24 15:23 Oxygen Delivery Method Room Air 11/16/24 15:23 BMI result Body Mass Index 22.5 Const General: no acute distress and alert Nutritional Appearance: not obese Orientation/consciousness: Other orientation findings ( oriented) HEENT Head: Yes atraumatic Eyes General: appearance normal, both eyes and all related structures Sclerae: sclerae normal EOM: EOMs intact bilaterally Neck Neck: Yes supple Lymphatic: no lymphadenopathy noted Resp Effort & Inspection: normal respiratory effort and no use of accessory muscles Auscultation: clear to auscultation bilaterally Cardio Rate: regular rate Rhythm: regular rhythm Heart sounds: no gallops, no murmurs and no rubs Skin General skin exam: other ( warm) Extrem General: No clubbing, No cyanosis and No edema Assessment & Plan Assessment & Plan (1) Abnormal chest x-ray: Code(s): R93.89 - Abnormal findings on diagnostic imaging of other specified body structures Category: Medical Plan: Abnormal and chest x-ray in patient with first-degree relative history of lung cancer. Will obtain CT chest for further evaluation. Orders: Orders CT chest wo IV con Today R93.89 - Abnormal findings on diagnostic imaging of other specified body structures Coding Level of Care Code New Pt Level 3 (26652) Diagnoses Abnormal chest x-ray R93.89
== END 2024-11-16 15:46 | disposition home or self-care (01) ==
PROVIDERS: PCP Physician Assistant; Visit Provider Internal Medicine Pulmonary Disease
DX: R93.89 Abnormal findings on diagnostic imaging of other specified body structures (principal)
CPT/HCPCS: 99203

== ENCOUNTER 2025-01-25 16:16 | Outpatient (REF) | payer MEDICARE, SELFPAY ==
--- NOTE | ~2025-01-25 | CT_ITS ---
CLINICAL HISTORY: R93.89 - Abnormal findings on diagnostic imaging of other specified body... CT chest without contrast Comparison: None Findings: The heart is normal size. The visualized thyroid and mediastinum are unremarkable. No chest wall lesions or axillary adenopathy. The trachea and central bronchi are patent. No dense consolidation, pleural effusion or pneumothorax. Atelectasis seen on the patient's prior exam appears resolved. 2 mm noncalcified right middle lobe pulmonary nodule image 90 series 4. The upper abdomen is unremarkable. No acute fractures. IMPRESSION: 1. No acute cardiopulmonary disease. A 2 mm right middle lobe pulmonary nodule is likely of no clinical significance. An optional chest CT could be considered in 12 months if the patient is at high risk for lung cancer. This document has been electronically signed by: Mariaa Zuluaga MD on 01/27/2025 08:23:35
== END 2025-01-25 16:17 | disposition home or self-care (01) ==
LOC: HO.CT 16:16
PROVIDERS: PCP Physician Assistant; Visit Provider Internal Medicine Pulmonary Disease
DX: R93.89 Abnormal findings on diagnostic imaging of other specified body structures (principal)
CPT/HCPCS: 71250

== ENCOUNTER → 2025-01-25 16:19 | Outpatient (BNV) | payer MEDICARE, SELFPAY | PROVIDERS: PCP Physician Assistant; Visit Provider Radiology Diagnostic Radiology | DX: R93.89 Abnormal findings on diagnostic imaging of other specified body structures (principal) | CPT/HCPCS: 71250 ==

== ENCOUNTER 2025-03-08 14:27 | Outpatient (AMB) | payer MEDICARE, OTHER, SELFPAY ==
[2025-03-08 14:28] VITALS: BP 119/62; PULSE 78; O2SAT 98; BMI 21.4
--- NOTE | 2025-03-08 14:28 | A.OFFVIS_ITS ---
Vital Signs 03/08/25 14:28 Height 5 ft 3 in Weight 121 lb BMI 21.4 BP 119/62 Blood Pressure Location Rt brachial Position Sitting Pulse 78 Pulse Source Pulse Oximeter Pulse Oximetry (%) 98 Oxygen Delivery Method Room Air Intake Visit Reasons: Atelectasis Allergies No Known Allergies (No Known Allergies*) Allergy (Verified 08/29/24 14:51) HPI HPI Atelectasis: Details: 64-year-old lady, nonsmoker, with no underlying, but family history lung cancer in her mother referred for evaluation of abnormal chest x-ray that demonstrates persistent atelectasis. Patient denies any pulmonary related concerns or complaints. She does complain of some musculoskeletal back pain. She denies exposure to industrial dusts. CT chest with no evidence of malignancy, but 2 mm right middle lobe nodule. 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 Cognitive needs: No Hearing needs: No Vision needs: Yes Review of Systems Const Denies daytime sleepiness, Denies excessive sweating, Denies fatigue, Denies fever(s), Denies lethargy, Denies malaise, Denies night sweats, Denies snoring and Denies weight loss Eyes Denies blurry vision and Denies itchy eyes ENT Denies nasal congestion, Denies post nasal drip, Denies sinus pain, Denies sinus pressure and Denies other ( Thrush) Card Denies chest pain, Denies pedal edema, Denies dyspnea, Denies orthopnea and Denies paroxysmal nocturnal dyspnea Resp Denies cough, Denies hemoptysis, Denies excessive phlegm production, Denies dyspnea, Denies snoring and Denies wheezing GI Denies abdominal pain and Denies heartburn Musc Denies myalgias, Denies arthralgias and Denies joint swelling Skin/Breast Denies rash Neuro Denies memory loss and Denies seizure-like activity Psych Denies abnormal sleep pattern, Denies anxiety and Denies memory loss Endo Denies excessive sweating, Denies fatigue and Denies heat intolerance Jac/Lymph Denies easy bruising Aller/Immun Denies itchy eyes, Denies seasonal rhinorrhea and Denies wheezing Physical Exam Vital Signs: Last Vital Signs Pulse 78 03/08/25 14:28 BP 119/62 03/08/25 14:28 Pulse Ox 98 03/08/25 14:28 Oxygen Delivery Method Room Air 03/08/25 14:28 BMI result Body Mass Index 21.4 Const General: no acute distress and alert Nutritional Appearance: not obese Orientation/consciousness: Other orientation findings ( oriented) HEENT Head: Yes atraumatic Eyes General: appearance normal, both eyes and all related structures Sclerae: sclerae normal EOM: EOMs intact bilaterally Neck Neck: Yes supple Lymphatic: no lymphadenopathy noted Resp Effort & Inspection: normal respiratory effort and no use of accessory muscles Auscultation: clear to auscultation bilaterally Cardio Rate: regular rate Rhythm: regular rhythm Heart sounds: no gallops, no murmurs and no rubs Skin General skin exam: other ( warm) Extrem General: No clubbing, No cyanosis and No edema Assessment & Plan Assessment & Plan (1) Pulmonary nodule: Code(s): R91.1 - Solitary pulmonary nodule Category: Medical Plan: Will repeat CT chest in January of 2026, if stable at that time, no further imaging follow-up would be required. Orders: Orders CT chest wo IV con 02/05/26 R91.1 - Solitary pulmonary nodule Coding Level of Care Code Est Pt Level 3 (98210) Diagnoses Pulmonary nodule R91.1
== END 2025-03-08 15:15 | disposition home or self-care (01) ==
PROVIDERS: PCP Physician Assistant; Visit Provider Internal Medicine Pulmonary Disease
DX: R91.1 Solitary pulmonary nodule (principal)
CPT/HCPCS: 99213

== ENCOUNTER → 2025-03-08 14:27 | Outpatient (BNVA) | payer MEDICARE, OTHER, SELFPAY | PROVIDERS: PCP Physician Assistant; Visit Provider Internal Medicine Pulmonary Disease | DX: R91.1 Solitary pulmonary nodule (principal) | CPT/HCPCS: 99212 ==

== ENCOUNTER 2025-04-12 08:15 | Outpatient (AMB) | payer BC, SELFPAY ==
--- NOTE | 2025-04-12 08:41 | MHC.PC.OV ---
Vital Signs 04/12/25 08:42 Height 5 ft 3 in Weight 119 lb 2 oz BMI 21.1 BP 132/68 Blood Pressure Location Lt brachial Position Sitting Pulse 71 Pulse Source Pulse Oximeter Temp 97.1 F Temp Source Temporal Artery Scan Pulse Oximetry (%) 95 Oxygen Delivery Method Room Air Intake Visit Reasons: PE Intake Note: Patient is here today for a physical. Pleating Supervisor Required: No Last Remodeler Repairer: Not Required per policy Accompanied by: Self / Same As Patient Allergies No Known Allergies (No Known Allergies*) Allergy (Verified 04/12/25 08:55) Medication List - Last Reconciled 04/12/25 by Jefry Story PA-C albuterol sulfate 90 mcg/actuation 1 inh inhalation QID PRN 30 days cholecalciferol (vitamin D3) 125 mcg PO DAILY cyanocobalamin (vitamin B-12) 1,000 mcg PO DAILY latanoprost 0.005% 1 drp ophthalmic (eye) QPM Tobacco use date assessed: 04/12/25 Fall risk assessment: No Falls in past year Last assessed Fall Risk: 04/12/25 Dental Screening Dental Screen Date: 04/12/25 Did you have a dental visit in the last 12 months?: Yes Did you have a dental problem in the last 6 months where you did not have access to dental care?: No Was dental information given to patient?: Patient has dentist HPI PE HPI Details patient is a 64-year-old female here today for a routine annual physical.? ? 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 .. .. Anxiety : Has been much better, has been dealing with some grief due to her passing of her little brother. She has not used any anxiety medication. 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 .. pulmonar nodules / Atelectasis: She does have history of a pulmonary nodule that was recently evaluated by CT scan and appear stable. Followed by [facility] and does have an albuterol rescue inhaler available to her. .. Borderline high cholesterol: Most recent lipid panel showing slightly elevated cholesterol 201. Will work on dietary modifications. ? Colorectal cancer screen: colonoscopy done 2015 polyp found benign results repeat 10 years. .. ?mammogram:? Has upcoming appt for mammo ?vaccines:? up-to-date with Tdap, up-to-date with COVID vaccine up-to-date with shingles V BELT INSPECTOR: Tommy V BELT INSPECTOR- PAP done in 2023 [facility] Medical History History of abnormal cervical Pap smear Glaucoma Surgical History No pertinent past surgical history Family History Mother Lung cancer History of breast cancer Father Non-Hodgkin lymphoma Brother Myeloma Social History (Updated 04/12/25 @ 09:00 by Jefry Story PA-C) Housing: House Alcohol intake: current Alcohol intake frequency: holidays/special occasions only Alcohol type: wine Patient Tobacco Use Status: Never used Tobacco e-Cigarette/Vaping Use: Never Used Second Hand Smoke Exposure: No service: No Current occupational status: retired 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 1. Little interest or pleasure in doing things: not at all 2. Feeling down, depressed, or hopeless: not at all 3. Trouble falling or staying asleep, or sleeping too much: not at all 4. Feeling tired or having little energy: not at all 5. Poor appetite or overeating: not at all 6. Feeling bad about yourself - or that you are a failure or have let yourself or your family down: not at all 7. Trouble concentrating on things, such as reading the newspaper or watching television: not at all 8. Moving or speaking so slowly that other people could have noticed. Or the opposite - being so fidgety or restless that you have been moving around a lot more than usual: not at all 9. Thoughts that you would be better off or of hurting yourself in some way: not at all Total score: 0 Depression Screening Interpretation: Negative Depression Screening Done: Yes [id number] - PHQ-9 Billing: Yes Source: Developed by Drs. Naseem Hammer, Martha B.Jesse Rhodes and colleagues, with an educational anders from [employer]. Thrive Questionnaire Date Thrive assessed: 04/12/25 I am a: Patient What is your living situation today?: I have a steady place to live Within the past 12 months, did the food you bought not last and you didn't have the money to get more?: Never true Within the past 12 months, did you worry whether your food would run out before you got money to buy more?: Never true Do you have trouble paying for medicines?: No Do you have trouble getting transportation to medical appointments?: No Do you have trouble paying your heating and electricity bill?: No Do you have trouble taking care of your child, family member or friend?: No Do you have trouble with day-to-day activities such as bathing, preparing meals, shopping, managing finances, etc.?: No Are you currently unemployed and looking for a job?: No Are you interested in more education?: No Please select the resources that you would like help with: None Currently or been in a relationship where the following occur: No concerns reported THRIVE Score: 0 AUDIT C Alcohol Use Questionnaire (AUDIT-C) 1. How often do you have a drink containing alcohol?: 2-4 times a month 2. How many drinks containing alcohol do you have on a typical day when you are drinking?: 1 or 2 3. How often do you have six or more drinks on one occasion?: Never Total Score: 2 DARLYN-7 AMB Questionnaire DARLYN-7 Date DARLYN - 7 assessed: 04/12/25 Feeling nervous, anxious, or on edge: 0 = Not at all Not being able to stop or control worryin = Not at all Worrying too much about different things: 0 = Not at all Trouble relaxin = Not at all Being so restless that it is hard to sit still: 0 = Not at all Becoming easily annoyed or irritable: 0 = Not at all Feeling afraid as if something awful might happen: 0 = Not at all Total DARLYN-7 score (0-4 normal; 5-9 mild; 10-14 moderate; 15-21 severe): 0 Source: Developed by Drs. Naseem Hammer, Jesse Carpio and colleagues, with an educational anders from [employer]. DARLYN-7 Assessment Billing DARLYN-7 Assessment Tool: DARLYN-7 Assessment [id number] Review of Systems Const Denies body aches, Denies chills, Denies excessive sweating, Denies fatigue, Denies fever(s) and Denies headache(s) Eyes Denies blurry vision ENT Denies dysphagia, Denies vertigo, Denies dizziness, Denies headache(s), Denies hearing loss and Denies tinnitus Card Denies chest pain, Denies chest pain with activity, Denies syncope, Denies irregular heart rhythm and Denies dyspnea Resp Denies chest congestion, Denies cough, Denies hemoptysis, Denies dyspnea and Denies wheezing GI Denies abdominal pain, Denies melena, Denies hematochezia, Denies coffee ground emesis, Denies dysphagia, Denies diarrhea, Denies nausea and Denies vomiting Denies urinary frequency, Denies dysuria, Denies urinary hesitancy and Denies urinary urgency Musc Denies arthralgias, Denies limited range of motion, Denies muscle cramps and Denies muscle weakness Skin/Breast Denies rash and Denies skin ulcer Neuro Denies Abnormal speech present, Denies confusion, Denies vertigo, Denies dizziness, Denies syncope, Denies headache(s), Denies memory loss and Denies seizure-like activity Psych Denies anxiety, Denies confusion, Denies depression, Denies memory loss, Denies panic attacks and Denies paranoia Endo Denies excessive sweating, Denies fatigue, Denies flushing, Denies polydipsia and Denies polyuria Aller/Immun Denies wheezing Physical exam (Primary Care) Vital Signs: Last Vital Signs Temp 97.1 F 04/12/25 08:42 Pulse 71 04/12/25 08:42 BP 132/68 04/12/25 08:42 Pulse Ox 95 04/12/25 08:42 Oxygen Delivery Method Room Air 04/12/25 08:42 BMI result Body Mass Index 21.1 Tobacco/Smoking Status: Tobacco use Status Tobacco use date assessed 04/12/25 04/12/25 08:45 Patient Tobacco Use Status Never used Tobacco 04/12/25 08:45 e-Cigarette/Vaping Use Never Used 04/12/25 08:45 PHQ-9: PHQ-9 Score PHQ-9: Total score 0 04/12/25 08:45 Depression Screening Interpretation: Negative Thrive Assessment: Date of Thrive Assessment Date Thrive assessed 04/12/25 04/12/25 08:45 Currently or been in a relationship where the following occur: No concerns reported Const General: cooperative, comfortable, no acute distress, alert and awake; No confusion Orientation/consciousness: oriented to person, oriented to place, patient oriented x3 and No confusion HENMT Head: Yes normocephalic Ears: external ears normal and TM's normal bilaterally Face and sinus: No sinus tenderness Mouth: Normal oral and palatal mucosa present and tongue normal Teeth and gingiva: dentition normal and gingiva normal Throat: Yes posterior oropharynx normal, Yes tonsils normal and Yes uvula midline Eyes Conjunctivae: conjunctivae normal Sclerae: sclerae normal Pupils: Equal, round and reactive pupils present EOM: EOMs intact bilaterally Direct Ophthalmoscopy: No no photophobia Neck Neck: Yes no lymphadenopathy, No tender and Yes no JVD Thyroid: Thyroid normal Carotids: no bruits Chest Chest palpation & inspection: no tenderness Resp Effort & Inspection: normal respiratory effort, no audible wheezes, not labored and no stridor Auscultation: no crackles, no rales, no rhonchi and no wheezes Cardio Jugular venous distension: no JVD Rate: regular rate, not bradycardic and not tachycardic Rhythm: regular rhythm Bruits: no carotid bruits Peripheral pulses: Peripheral pulses 2+ throughout GI Inspection: Yes normal to inspection, No abdominal wall ecchymosis and No visible herniation Palpation (GI): Soft to palpation, nontender, no guarding, not rigid and No hepatosplenomegaly present Auscultation: normoactive bowel sounds General: Yes no CVA tenderness Back/Spine/Pelvis Back: no CVA tenderness and No back tenderness Cervical Spine: cervical ROM normal Thoracic/Lumbar Spine: thoracic and lumbar spine normal to inspection, straight leg raise negative bilaterally, No thoraco-lumbar ROM limited and No lumbar spinal tenderness Skin Lesions: no lesions Rashes: no rashes Wounds: no wounds Neuro General: oriented to person, oriented to place, patient oriented x3, CN's II-XI intact bilaterally and No confusion Cranial nerves: Yes Equal, round and reactive pupils present and Yes Normal accommodation reflex present Cognition (Neuro): normal cognition Speech: No Abnormal speech present Gait exam (Neuro): Normal gait present Motor exam (neuro): 5/5 motor strength present throughout Extrem Right upper extremity: full ROM; no cyanosis Left upper extremity: full ROM; no cyanosis Right lower extremity: no edema Left lower extremity: no edema Psych Appearance: grossly normal Mental Status: mental status grossly normal Affect: normal affect Attitude: cooperative Thought process: Normal thought process present Coding Level of Care Code Est Pt Prev Care >65y(96247) Diagnoses Annual physical exam Z00.00 DARLYN (generalized anxiety disorder) F41.1 Elevated vitamin B12 level R74.8 Pulmonary nodule R91.1 Additional Codes PHQ-9 - 29246 - PHQ-9 Billing: Yes ([id number]) DARLYN-7 Assessment Billing - DARLYN-7 Assessment Tool: DARLYN-7 Assessment 83201 ([id number]) Assessment & Plan Assessment & Plan (1) Annual physical exam: Code(s): Z00.00 - Encounter for general adult medical examination without abnormal findings Category: Medical Plan: As per HPI (2) DARLYN (generalized anxiety disorder): Code(s): F41.1 - Generalized anxiety disorder Category: Medical Plan: Patient has a history of anxiety, currently dealing with grief due to her loss of her younger brother due to multiple myeloma. She feels she has plenty of support through family and friends. (3) Elevated vitamin B12 level: Code(s): R74.8 - Abnormal levels of other serum enzymes Category: Medical Plan: Will recheck B12 level (4) Pulmonary nodule: Code(s): R91.1 - Solitary pulmonary nodule Category: Medical Plan: Patient followed by pulmonology. Recent CT done in January of 2025 showing stable nodule. Recommended Repeat [address] Orders: Orders Lipid Panel Today E78.9 - Disorder of lipoprotein metabolism, unspecified Complete Blood Count no Diff Today E78.9 - Disorder of lipoprotein metabolism, unspecified Vitamin B12 and Folate Today E53.8 - Deficiency of other specified B group vitamins, R74.8 - Abnormal levels of other serum enzymes Comprehensive [place]. Panel Fast Today E78.9 - Disorder of lipoprotein metabolism, unspecified
[2025-04-12 08:42] VITALS: BP 132/68; PULSE 71; TEMP 36.2; O2SAT 95; BMI 21.1
== END 2025-04-12 09:11 | disposition home or self-care (01) ==
LOC: HO.HMCH 08:16
PROVIDERS: PCP Internal Medicine; Visit Provider Physician Assistant
DX: Z00.00 Encounter for general adult medical examination without abnormal findings (principal); F41.1 Generalized anxiety disorder; R74.8 Abnormal levels of other serum enzymes; R91.1 Solitary pulmonary nodule

== ENCOUNTER → 2025-04-12 08:15 | Outpatient (BNVA) | payer MEDICARE, OTHER, SELFPAY | PROVIDERS: PCP Internal Medicine; Visit Provider Physician Assistant | DX: Z00.00 Encounter for general adult medical examination without abnormal findings (principal); F41.1 Generalized anxiety disorder; R74.8 Abnormal levels of other serum enzymes; R91.1 Solitary pulmonary nodule | CPT/HCPCS: 96127 ==

== ENCOUNTER 2025-04-19 07:45 | Outpatient (REF) | payer MEDICARE, OTHER, SELFPAY ==
[2025-04-19 11:33] LABS: Hematocrit 36.1 % (37.0-47.0); Hemoglobin 12.1 g/dl (12.0-16.0); Mean Corpuscular HGB Conc 33.5 g/dl (31.0-35.0); Mean Corpuscular Hemoglobin 31.7 pg (27.0-33.0); Mean Corpuscular Volume 94.5 fL (80.0-98.0); NRBC Abs Auto 0.000 X10*3/uL (0.0-0.012); NRBC Pct Auto 0.0 /100WBC (0.0-0.2); Platelet Count 301 X10*3/uL (160-400); Red Blood Count 3.82 X10*6/uL (4.20-5.50); White Blood Count 5.7 X10*3/uL (4.8-10.8)
[2025-04-19 12:01] LABS: Alanine Aminotransferase 16 U/L (0-31); Albumin Level 4.5 g/dL (3.5-5.0); Alkaline Phosphatase 69 U/L (39-117); Anion Gap 11 (12-20); Aspartate Amino Transferase 23 U/L (5-31); Blood Urea Nitrogen 15 mg/dL (9-16); Calcium 9.2 mg/dL (8.4-10.2); Carbon Dioxide 28 mmol/L (22-29); Chloride 107 mmol/L (96-108); Cholesterol 194 mg/dL (<200); Estimated Glomerular Filt Rate > 60; HDL Cholesterol 44 mg/dL (>40); Potassium 3.5 mmol/L (3.3-5.1); Sodium 142 mmol/L (135-145); Total Protein 7.1 g/dL (6.5-8.0); Triglycerides 63 mg/dL (<150)
[2025-04-19 12:23] LABS: Folate 11.0 ng/mL (> or = 4.0); Vitamin B12 1144 pg/mL (200-900)
== END 2025-04-19 07:46 | disposition home or self-care (01) ==
LOC: HO.10HDL 07:45
PROVIDERS: Visit Provider Physician Assistant
DX: E53.8 Deficiency of other specified B group vitamins (principal); R74.8 Abnormal levels of other serum enzymes; E78.9 Disorder of lipoprotein metabolism, unspecified
CPT/HCPCS: 36415; 80053; 80061; 82607; 82746; 85027

== ENCOUNTER 2025-05-04 08:10 | Outpatient (REF) | payer MEDICARE, OTHER, SELFPAY | END 2025-05-04 08:11 | disposition home or self-care (01) | LOC: HO.MAMMO 08:10 | PROVIDERS: PCP Physician Assistant; Visit Provider Physician Assistant | DX: Z12.31 Encounter for screening mammogram for malignant neoplasm of breast (principal) | CPT/HCPCS: 77063; 77067 ==

== ENCOUNTER → 2025-05-04 08:30 | Outpatient (BNV) | payer MEDICARE, OTHER, SELFPAY | PROVIDERS: PCP Physician Assistant; Visit Provider Internal Medicine | DX: Z12.31 Encounter for screening mammogram for malignant neoplasm of breast (principal) | CPT/HCPCS: 77063; 77067 ==

== ENCOUNTER 2025-06-07 12:17 | Outpatient (REF) | payer MEDICARE, OTHER, SELFPAY | END 2025-06-07 12:18 | disposition home or self-care (01) | LOC: HO.MAMMO 12:17 | PROVIDERS: PCP Physician Assistant; Visit Provider Physician Assistant | DX: N64.89 Other specified disorders of breast (principal) | CPT/HCPCS: 76642; 77061; 77065 ==

== ENCOUNTER → 2025-06-07 12:30 | Outpatient (BNV) | payer MEDICARE, OTHER, SELFPAY | PROVIDERS: PCP Physician Assistant; Visit Provider Internal Medicine | DX: N60.21 Fibroadenosis of right breast (principal) | CPT/HCPCS: 76642; 77065; G0279 ==

== ENCOUNTER 2025-07-20 13:43 | Outpatient (AMB) | payer MEDICARE, OTHER, SELFPAY ==
--- NOTE | 2025-07-20 13:52 | A.OFFVIS_ITS ---
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 No complaints. Last Pap/HPV in 08/07 was LGSIL/ HPV positive, colpo biopsy ECC in 08/07 was negative Last Mammogram was BI-RADS 3 in 06/08, the recommendation was to repeat in six- months, mammogram is scheduled in 12/07 Years ago Last Colonoscopy was many no previous DEXA scan [facility] Medical History History of abnormal cervical Pap smear Glaucoma Surgical History No pertinent past surgical history Family History Mother Lung cancer History of breast cancer Father Non-Hodgkin lymphoma Brother Myeloma Social History Housing: House Alcohol intake: current Alcohol intake frequency: holidays/special occasions only Alcohol type: wine Patient Tobacco Use Status: Never used Tobacco e-Cigarette/Vaping Use: Never Used Second Hand Smoke Exposure: No service: No Current occupational status: retired 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 Cognitive needs: No Hearing needs: No Vision needs: Yes (Glasses) Female Reproductive History Menstrual Date of last pap smear: 07/18/24 History of abnormal pap smear: Yes (HPV +) Date of Mammogram: 05/04/25 Review of Systems Const All systems reviewed & are unremarkable except as noted in HPI and below Card Reports as per HPI Resp Reports as per HPI GI Reports as per HPI and Reports no additional complaints Reports as per HPI Physical Exam Vital Signs: Last Vital Signs BP 110/70 07/20/25 13:54 BMI result Body Mass Index 21.3 Const General: cooperative, healthy appearing and comfortable Chest Chest palpation & inspection: normal inspection of the chest and normal palpation of entire chest wall Breast/axilla inspection: normal inspection of the breasts and normal inspection of the axillae Breast/axilla palpation: normal palpation of the breasts, normal palpation of the axillae and no axillary lymphadenopathy Resp Effort & Inspection: normal respiratory effort Auscultation: clear to auscultation bilaterally Percussion: percussion normal Cardio Palpation: normal PMI Rate: regular rate Rhythm: regular rhythm Heart sounds: no murmurs and no rubs Peripheral pulses: Peripheral pulses 2+ throughout GI Inspection: Yes normal to inspection Palpation (GI): Soft to palpation, nontender, no guarding, not rigid and No hepatosplenomegaly present Percussion: Yes normal to percussion Auscultation: normal bowel sounds Rectal Exam - Female: deferred General: Yes bladder normal to palpation External Female Exam: No lesion Speculum Exam - Vagina: normal appearance of the vagina, normal palpation, normal vaginal discharge and not erythematous Speculum Exam - Cervix: normal appearance of the cervix and normal palpation Bimanual exam- vagina & uterus: normal bimanual exam, normal palpation, uterine size normal, bladder normal to palpation, consistency normal and normal palpation Bimanual Exam- Adnexa, other: normal adnexae, no masses and no tenderness Assessment & Plan Assessment & Plan (1) Well woman exam: Comment: MELANIE 1 in 08/07 Code(s): Z01.419 - Encounter for gynecological examination (general) (routine) without abnormal findings Category: Medical Plan: Co testing done Counseled the patient about the recommended dietary allowance of 1200 mg of Calcium & 800 IU of vitamin D. Mammogram scheduled in 12/07 Referred her for screening colonoscopy done. Will order DEXA scan . The patient was instructed to perform monthly self-breast exams and to schedule a 2 week DEXA scan follow-up appointment and an annual exam in a year; All questions answered and the patient verbalized understanding. Orders: Orders XR DEXA axial skeleton Today Z78.0 - Asymptomatic menopausal state Referrals Gastroenterology Referral Z12.11 - Encounter for screening for malignant neoplasm of colon Coding Level of Care Code Est Pt Prev Care >65y(00114) Diagnoses Well woman exam Z01.419
[2025-07-20 13:54] VITALS: BP 110/70; BMI 21.3
== END 2025-07-20 15:20 | disposition home or self-care (01) ==
LOC: HO.HWS 13:44
PROVIDERS: PCP Physician Assistant; Visit Provider Obstetrics & Gynecology
DX: Z01.419 Encounter for gynecological examination (general) (routine) without abnormal findings (principal)
CPT/HCPCS: G0101

== ENCOUNTER 2025-07-20 13:43 | Outpatient (REF) | payer MEDICARE, OTHER, SELFPAY | END 2025-07-20 13:44 | disposition home or self-care (01) | LOC: HO.LNP 13:43 | PROVIDERS: PCP Physician Assistant; Visit Provider Obstetrics & Gynecology | DX: Z01.419 Encounter for gynecological examination (general) (routine) without abnormal findings (principal); Z11.51 Encounter for screening for human papillomavirus (HPV) | CPT/HCPCS: 87626; 88175; G0101 ==

== ENCOUNTER 2025-07-31 10:22 | Outpatient (REF) | payer MEDICARE, OTHER, SELFPAY | END 2025-07-31 10:23 | disposition home or self-care (01) | LOC: HO.LNP 10:22 | PROVIDERS: PCP Physician Assistant; Visit Provider Obstetrics & Gynecology | DX: A63.0 Anogenital (venereal) warts (principal) | CPT/HCPCS: 57454; 88305; 88341; 88342 ==

== ENCOUNTER 2025-07-31 10:22 | Outpatient (AMB) | payer MEDICARE, OTHER, SELFPAY ==
[2025-07-31 10:33] VITALS: BP 144/80; BMI 21.3
--- NOTE | 2025-07-31 10:33 | A.OFFVIS_ITS ---
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 Pipe Lines Required: No Information Interpreted: non-clinical & clinical Vibrating Screen Operator: Vibrating Screen Operator Present (Priya MOTT) Accompanied by: Self / Same As Patient Allergies No Known Allergies (No Known Allergies*) Allergy (Verified 07/31/25 10:34) Post menopausal: Yes HPI Comments Details: Presenting for colposcopy, HPV positive, cytology pending 08/07 Pap= LSIL/HPV positive, colpo biopsy ECC negative PFSH Medical History History of abnormal cervical Pap smear Glaucoma Surgical History No pertinent past surgical history Family History Mother Lung cancer History of breast cancer Father Non-Hodgkin lymphoma Brother Myeloma Social History Housing: House Alcohol intake: current Alcohol intake frequency: holidays/special occasions only Alcohol type: wine Patient Tobacco Use Status: Never used Tobacco e-Cigarette/Vaping Use: Never Used Second Hand Smoke Exposure: No service: No Current occupational status: retired 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 We thoroughly discussed the procedure itself, including its details, alternatives, and all associated risks. This included but not limited to the following complications such as bleeding, infection, and injury to the vagina, bladder, and vessels, as well as the potential need for transfusion with all its associated risks. Subsequently, the patient sign the consent. Pap smear result: HPV positive Procedure: During the procedure, the following steps were performed: A speculum was inserted, and acetic acid was applied. Colposcopy was conducted, allowing visualization of the transformation zone. Acetowhite lesions were identified at the 12 +3 o'clock position. Cervical biopsies were obtained from the 12 +3 o'clock position, followed by an endocervical curettage (ECC). Vaginoscopy of the upper vagina revealed no evidence of aceto-white lesions. Hemostasis was achieved using Monsel solution, and the patient tolerated the procedure well. Post-Procedure Instructions: The patient was advised to promptly contact the office or the after hours answering service or go to the emergency room if experiencing a temperature exceeding 100.4?F, abdominal pain, nausea/vomiting, or bleeding. Additionally, the patient was instructed to abstain from vaginal intercourse and bathtub use. The patient confirmed understanding of these instructions. Discharge Instructions: The patient was instructed to schedule a follow-up appointment in 2 weeks for further evaluation and management. Please note that this note was generated using a voice recognition program, and errors may have occurred during credentialing specialist. [id number] of cervix including upper vagina with biopsy and ECC Procedure code (CPT) selection complete Assessment & Plan Assessment & Plan (1) HPV (human papilloma virus) anogenital infection: Code(s): A63.0 - Anogenital (venereal) warts Category: Medical Plan: Discussed with the patient the result of her HPV positive, Pap pending, its significance, risk of progression, persistence, and regression. the false positive/negative rate of a Pap smear as a screening test in detecting cervical cancer and the indication for a diagnostic test -colposcopy, biopsy, endocervical curettage. The patient verbalized understanding and agreed with the plan, all questions answered. Colposcopy, biopsy /ECC done, see procedure note Orders: Orders AMB Colposcopy Today A63.0 - Anogenital (venereal) warts Coding Level of Care Code Procedure Only Diagnoses HPV (human papilloma virus) anogenital infection A63.0 CPT Codes Colposcopy - CPT: 29955-Aulwsjjhm of cervix including upper vagina with biopsy and ECC ([id number])
== END 2025-07-31 11:14 | disposition home or self-care (01) ==
LOC: HO.HWS 10:24
PROVIDERS: PCP Physician Assistant; Visit Provider Obstetrics & Gynecology
DX: A63.0 Anogenital (venereal) warts (principal)
CPT/HCPCS: 57454

== ENCOUNTER 2025-08-14 11:37 | Outpatient (AMB) | payer MEDICARE, OTHER, SELFPAY ==
--- NOTE | 2025-08-14 11:37 | A.OFFVIS_ITS ---
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 The patient is doing well with no complaints. 08/08 Pap smear showed the following: General Category: Epithelial cell abnormality. Adequacy: No endocervical component present; atrophic smear. Interpretation: Low grade squamous intraepithelial lesion (MELANIE I), cannot rule out high grade lesion. HPV High Risk: Positive HPV Genotyping 16: Negative HPV Genotyping 18: Negative This case was reviewed intradepartmentally The pathology showed the following: A. Endocervix, curettage: Detached strips of squamous epithelium with atypical and atrophic changes; no endocervical glandular epithelium present (see comment). B. Cervix, 3:00, biopsy: Predominantly denuded cervical stroma with scant at rophic squamous epithelium; negative for dysplasia; no endocervical glandular mucosa present. C. Cervix, 12:00, biopsy: Partially denuded cervical stroma with atrophic squamous epithelium; negative for dysplasia; no endocervical glandular mucosa present. Comment: The changes are insufficient for an unequivocal diagnosis of dysplasia and follow-up is warranted. Review of the patient's previous Pap test ([id number]) is pending; addendum to follow. 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 Cognitive needs: No Hearing needs: No Vision needs: Yes (Glasses) Review of Systems Const All systems reviewed & are unremarkable except as noted in HPI and below Reports as per HPI and Reports no additional complaints GI Reports no additional complaints Reports no additional complaints Telehealth Telehealth Telehealth Platform: [facility] Location of provider rendering services: practice address Location of patient: address on file Patient Identification confirmed using: Name, : Yes Telehealth method: voice only Patient verbally consented to treatment: Yes Patient verbally consented to billing insurance company: Yes Patient informed of any privacy concerns related to visit: Yes Minutes spent on Phone/Video with Pt.: 7 Assessment & Plan Assessment & Plan (1) LGSIL on Pap smear of cervix: Comment: HPV E6 E7 positive Can not rule out high-grade LUIS Code(s): R87.612 - Low grade squamous intraepithelial lesion on cytologic smear of cervix (LGSIL) Category: Medical Plan: Discussed with the patient the pathology results, sensitivity, specificity, false-positive and false-negative rate detecting cervical dysplasia. Explained to the patient the discrepancy between cytology L LUIS can not rule out high- grade LUIS and pathology with possible dysplasia. Options of treatment were discussed with the patient included Co testing in a year versus LEEP. All pros and cons, risks and benefits of each were discussed with the patient, the patient decided to proceed with LEEP possible cone with post cone ECC. Instructions given the patient to schedule a preop visit for her LEEP possible cone with post cone ECC I spent a total of 20 minutes reviewing the chart, talking to the patient via video and documenting in the medical record. Coding Level of Care Code Est Pt Level 3 (01890) Diagnoses LGSIL on Pap smear of cervix R87.612
== END 2025-08-14 12:39 | disposition home or self-care (01) ==
LOC: HO.HWS 11:37
PROVIDERS: PCP Physician Assistant; Visit Provider Obstetrics & Gynecology
DX: R87.612 Low grade squamous intraepithelial lesion on cytologic smear of cervix (LGSIL) (principal)
CPT/HCPCS: 99213

== ENCOUNTER → 2025-08-14 11:37 | Outpatient (BNVA) | payer MEDICARE, OTHER, SELFPAY | PROVIDERS: PCP Physician Assistant; Visit Provider Obstetrics & Gynecology | DX: R87.612 Low grade squamous intraepithelial lesion on cytologic smear of cervix (LGSIL) (principal) | CPT/HCPCS: 99212 ==

== ENCOUNTER 2025-08-24 13:10 | Outpatient (AMB) | payer MEDICARE, OTHER, SELFPAY ==
--- NOTE | 2025-08-24 13:25 | MHC.OFFVIS ---
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 The patient is doing well with no complaints. Colposcopy biopsy ECC pathology showed the following: A. Endocervix, curettage: Detached strips of squamous epithelium with atypical and atrophic changes; no endocervical glandular epithelium present (see comment). B. Cervix, 3:00, biopsy: Predominantly denuded cervical stroma with scant atrophic squamous epithelium; negative for dysplasia; no endocervical glandular mucosa present. C. Cervix, 12:00, biopsy: Partially denuded cervical stroma with atrophic squamous epithelium; negative for dysplasia; no endocervical glandular mucosa present. Comment: The changes are insufficient for an unequivocal diagnosis of dysplasia and follow-up is warranted. Review of the patient's previous Pap test ([id number]) is pending; addendum to follow Last Co testing in 08/08 showed the following: General Category: Epithelial cell abnormality. Adequacy: No endocervical component present; atrophic smear. Interpretation: Low grade squamous intraepithelial lesion (MELANIE I), cannot rule out high grade lesion. HPV High Risk: Positive HPV Genotyping 16: Negative HPV Genotyping 18: Negative This case was reviewed intradepartmentally [facility] Medical History History of abnormal cervical Pap smear Glaucoma Surgical History No pertinent past surgical history Family History Mother Lung cancer History of breast cancer Father Non-Hodgkin lymphoma Brother Myeloma Social History Housing: House Alcohol intake: current Alcohol intake frequency: holidays/special occasions only Alcohol type: wine Patient Tobacco Use Status: Never used Tobacco e-Cigarette/Vaping Use: Never Used Second Hand Smoke Exposure: No service: No Current occupational status: retired 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 Cognitive needs: No Hearing needs: No Vision needs: Yes (Glasses) Female Reproductive History Menstrual Date of last menstrual period: 07/12/20 Total pregnancies: 2 Full term: 2 Review of Systems Card Reports as per HPI and Reports no additional complaints Resp Reports as per HPI and Reports no additional complaints GI Reports as per HPI and Reports no additional complaints Reports as per HPI Physical Exam Vital Signs: Last Vital Signs BP 136/74 08/24/25 13:29 BMI result Body Mass Index 21.3 Const General: cooperative, healthy appearing and comfortable Resp Effort & Inspection: normal respiratory effort Auscultation: clear to auscultation bilaterally Percussion: percussion normal Cardio Palpation: normal PMI Rate: regular rate Rhythm: regular rhythm Heart sounds: no murmurs and no rubs Peripheral pulses: Peripheral pulses 2+ throughout GI Inspection: Yes normal to inspection Palpation (GI): Soft to palpation, nontender, no guarding, not rigid and No hepatosplenomegaly present Percussion: Yes normal to percussion Auscultation: normal bowel sounds Rectal Exam - Female: deferred Assessment & Plan Assessment & Plan (1) LGSIL on Pap smear of cervix: Comment: HPV E6 E7 positive Can not rule out high-grade LUIS Colpo and biopsy negative Code(s): R87.612 - Low grade squamous intraepithelial lesion on cytologic smear of cervix (LGSIL) Category: Medical Plan: Will proceed with LEEP possible cone with post cone ECC. Discussed with the patient the procedure, its benefits and risks including bleeding, infection, possible need for blood transfusion with all its risk ( HIV, syphilis, Hepatitis, anaphylaxis shock, others..), injury to bladder, rectum, possible re-excision for positive margins, potential need for hysterectomy, possible positive margin necessitating re-excision. Also discussed the patient options of anesthesia either paracervical block versus IV sedation/MAC, prefers to proceed with IV sedation/MAC. Instructions given to patient to stay NPO after midnight prior to the procedure . All questions answered, the patient verbalized understanding and signed the consent. Coding Level of Care Code Est Pt Level 3 (66354) Diagnoses LGSIL on Pap smear of cervix R83.136
[2025-08-24 13:29] VITALS: BP 136/74; BMI 21.3
== END 2025-08-24 16:06 | disposition home or self-care (01) ==
LOC: HO.HWS 13:10
PROVIDERS: PCP Physician Assistant; Visit Provider Obstetrics & Gynecology
DX: R87.612 Low grade squamous intraepithelial lesion on cytologic smear of cervix (LGSIL) (principal)
CPT/HCPCS: 99213

== ENCOUNTER → 2025-08-24 13:10 | Outpatient (BNVA) | payer MEDICARE, OTHER, SELFPAY | PROVIDERS: PCP Physician Assistant; Visit Provider Obstetrics & Gynecology | DX: Z01.818 Encounter for other preprocedural examination (principal); R87.612 Low grade squamous intraepithelial lesion on cytologic smear of cervix (LGSIL) | CPT/HCPCS: 99212 ==

== ENCOUNTER 2025-08-28 10:14 | Day surgery (SDC) | payer MEDICARE, OTHER, SELFPAY ==
--- NOTE | 2025-08-25 11:56 | HO.ANESPROP2 ---
Documented by User: Serene Allen NP 08/25/25 11:56 HPI - Anesthesia Eval Consult details Narrative: 65yo F for LEEP,poss loop electric excision,poss loop electrical,cone and post endocervical curettage PMFSH Active Problems Active Problems: All Active Problems HPV (human papilloma virus) anogenital infection (Acute) Well woman exam (Acute) Pulmonary nodule (Acute) Abnormal chest x-ray (Acute) LGSIL on Pap smear of cervix (Acute) Encounter for well woman exam with routine gynecological exam (Acute) Borderline high cholesterol (Acute) Elevated vitamin B12 level (Acute) Cervical cancer screening (Acute) Low hemoglobin and low hematocrit (Acute) Screening for hypercholesterolemia (Acute) Screening for hypothyroidism (Acute) Second hand smoke exposure (Acute) Screening for diabetes mellitus (DM) (Acute) Glaucoma (Acute) DARLYN (generalized anxiety disorder) (Acute) Annual physical exam (Acute) Past Medical History Medical History History of abnormal cervical Pap smear Glaucoma Family History Family History Mother Lung cancer History of breast cancer Father Non-Hodgkin lymphoma Brother Myeloma Surgical History Surgical History No pertinent past surgical history Social History Social History Housing: House Alcohol intake: current Alcohol intake frequency: holidays/special occasions only Alcohol type: wine Patient Tobacco Use Status: Never used Tobacco e-Cigarette/Vaping Use: Never Used Second Hand Smoke Exposure: No Use of substances other than those prescribed or required for medical reasons: No Advance Directives: No Advance Directives Information Provided: Yes service: No Current occupational status: retired 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 Cognitive needs: No Hearing needs: No Vision needs: Yes (Glasses) Meds Allergies Allergy/AdvReac Type Severity Reaction Status Date / Time No Known Allergies (No Known Allergy Verified 08/14/25 11:37 Allergies*) Home Medications ?Medication ?Instructions ?Recorded ?Confirmed ?Last Taken ?Type cholecalciferol (vitamin D3) 125 125 mcg PO DAILY 03/31/22 04/12/25 Unknown History mcg (5,000 unit) capsule cyanocobalamin (vitamin B-12) 1,000 mcg PO DAILY 03/31/22 04/12/25 Unknown History 1,000 mcg capsule latanoprost 0.005 % eye drops 1 drp ophthalmic (eye) QPM 03/31/22 04/12/25 Unknown History Assessment and Plan Assessment Anesthesia Assessment: Chart Reviewed Documented by User: Ezra Alejandra MD 08/28/25 13:41 PMFSH Past Medical History Medical History History of abnormal cervical Pap smear Glaucoma Family History Family History Mother Lung cancer History of breast cancer Father Non-Hodgkin lymphoma Brother Myeloma Family history of problems with anesthesia: No Surgical History Surgical History No pertinent past surgical history History of Problems with Anesthesia: No Social History Social History Housing: House Alcohol intake: current Alcohol intake frequency: holidays/special occasions only Alcohol type: wine Patient Tobacco Use Status: Never used Tobacco e-Cigarette/Vaping Use: Never Used Second Hand Smoke Exposure: No Use of substances other than those prescribed or required for medical reasons: No Advance Directives: No Advance Directives Information Provided: Yes service: No Current occupational status: retired 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 Cognitive needs: No Hearing needs: No Vision needs: Yes (Glasses) Meds Allergies Allergy/AdvReac Type Severity Reaction Status Date / Time No Known Allergies (No Known Allergy Verified 08/14/25 11:37 Allergies*) Home Medications ?Medication ?Instructions ?Recorded ?Confirmed ?Last Taken ?Type cholecalciferol (vitamin D3) 125 125 mcg PO DAILY 03/31/22 04/12/25 Unknown History mcg (5,000 unit) capsule cyanocobalamin (vitamin B-12) 1,000 mcg PO DAILY 03/31/22 04/12/25 Unknown History 1,000 mcg capsule latanoprost 0.005 % eye drops 1 drp ophthalmic (eye) QPM 03/31/22 04/12/25 Unknown History Exam Exam Date and Time: 10/29/24 Airway Mallampati Class: II TM Dist: >3cm Neck ROM: Full Heart: rrr Lungs: ctab vesicular Assessment and Plan Assessment Anesthesia Assessment: Anesthesia Plan Discussed Final Anesthetic Review Family History of Problems with Anesthesia: No History of Problems with Anesthesia: No NPO: Yes ASA Class: II Final Preanesthetic Review: No Changes in Pt Med Stat, Meds/Allgs Chart Reviewed, Consent Obtained/Reviewed and Anes Risks/Benef Reviewed Patient Risk: Low Procedure Risk: Low Anesthetic Plan Anesthetic Plan: GA Disposition: Standard PACU
[2025-08-28] VITALS (9 sets, daily range): BP systolic 108–142; BP diastolic 57–74; PULSE 80–108; RESP 12–16; TEMP 36.2–36.9; O2SAT 96–100; BMI 22.1
[2025-08-28] MEDS: Lactated Ringers 1,000 ML 100 ML IVCONT (12:20)
--- NOTE | 2025-08-28 13:41 | MHC.SHP ---
Pre-Procedural Eval Section A - 24 Hr Update-Section A only Date of Service: 08/28/25 The patient is an INPATIENT: No Changes since office visit: No Cold of Flu in the past 2 weeks, No New Medical Problems, No Changes in Medication and No Patient answered all questions The patient has been examined within 24 hours of the surgical procedure. The History & Physical has been completed within 30 days and I have reviewed it.: Yes Section B - Complete if H&P > 30 days Chief Complaint: Low grade squamous intraepithelial lesion Allergies: Allergies Allergy/AdvReac Type Severity Reaction Status Date / Time No Known Allergies (No Known Allergy Verified 08/14/25 11:37 Allergies*) Plan Diagnosis/Plan: Unchanged I have reviewed the history and physical and performed a pertinent physical examination on my patient. No changes have occurred unless specified. Time Spent With Patient Time: Total time managing care of this patient today ____ minutes.
--- NOTE | 2025-08-28 14:37 | P.BOP_ITS ---
Brief Operative Note Date of Service: 08/28/25 Pre-op diagnosis: Discrepancy between cytology L LUIS can not rule out HGSIL and negative pathology Post-op diagnosis: same Procedure: Aborted Attempt for LEEP Surgeon: Barry Farmer MD Anesthesia: GLMA and other (Paracervical block) Was an Airport Utility Worker used for this Procedure?: No Estimated blood loss (mL): 0 Pathology: none sent Condition: stable Disposition: other (Home)
--- NOTE | 2025-08-28 14:38 | W.PM.OPN ---
Operative Note Operative Note Date of Service: 08/28/25 Narrative: Pre op diagnosis: Discrepancy between cytology L LUIS rule out high-grade LUIS negative pathology Operation: Aborted attempt at Loop electrical excision procedure Postop diagnosis: the same , cervix flushed with vaginal wall Quantitative blood loss: 10 cc Surgeon: Barry Farmer MD, FACOG Deep Tissue Massage Therapist: None Pathology: None Complications: none Anesthesia: GLMA and Para cervical block Procedure: The patient was put in a dorsal lithotomy position, scrubbed and draped in the usual sterile fashion. A speculum was inserted inside the patient's vagina. Inspection revealed flushed cervix with the vaginal wall There was a lot of difficulty identifying the cervical margin from the vaginal wall anteriorly posteriorly and anteriorly. After multiple attempts the decision was to abort the procedure without proceeding with a LEEP. It was determined that it is unsafe to proceed with LEEP without properly identifying the margin of the cervix in order to prevent bowel or bladder injury. The patient tolerated the attempted procedure well and, all instruments were taken out of the patient vaginal cavity, and the patient was transferred to the PACU in stable condition.
== END 2025-08-28 16:48 | disposition home or self-care (01) ==
PROVIDERS: PCP Physician Assistant; Visit Provider Obstetrics & Gynecology
PROC: 0UBC7ZZ Excision of Cervix, Via Natural or Artificial Opening (ICD-10-PCS; CPT 57522; principal; 2025-08-28 14:10)
DX: R87.612 Low grade squamous intraepithelial lesion on cytologic smear of cervix (LGSIL) (principal); N88.8 Other specified noninflammatory disorders of cervix uteri
CPT/HCPCS: 57522; J0131; J0461; J1100; J1171; J1596; J2003; J2004; J2250; J2371; J2405; J2704; J3010

== ENCOUNTER → 2025-08-28 10:14 | Outpatient (BNV) | payer MEDICARE, OTHER, SELFPAY | PROVIDERS: PCP Physician Assistant; Visit Provider Obstetrics & Gynecology | DX: R89.6 Abnormal cytological findings in specimens from other organs, systems and tissues (principal) | CPT/HCPCS: 57522 ==

== ENCOUNTER 2025-09-12 08:41 | Outpatient (AMB) | payer MEDICARE, OTHER, SELFPAY ==
--- NOTE | 2025-09-12 08:46 | A.OFFVIS_ITS ---
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 Facility Required: No Information Interpreted: non-clinical & clinical Accompanied by: Self / Same As Patient Allergies No Known Allergies (No Known Allergies*) Allergy (Verified 09/12/25 09:03) HPI Comments Details: Presenting post failed attempt at LEEP procedure, doing well with no complaints 08/08 Pap smear L LUIS can not exclude HGSIL/ HPV positive/HPV 16/18 negative 08/08 colpo biopsy ECC was negative, no endocervical cells present 09/07 attempted LEEP was aborted due to inability to undefined anatomical margin of the cervix with the vaginal wall, it was unsafe to proceed with a LEEP the procedure was aborted [facility] Medical History History of abnormal cervical Pap smear Glaucoma Surgical History No pertinent past surgical history Family History Mother Lung cancer History of breast cancer Father Non-Hodgkin lymphoma Brother Myeloma Social History Housing: House Alcohol intake: current Alcohol intake frequency: holidays/special occasions only Alcohol type: wine Patient Tobacco Use Status: Never used Tobacco e-Cigarette/Vaping Use: Never Used Second Hand Smoke Exposure: No service: No Current occupational status: retired 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 Cognitive needs: No Hearing needs: No Vision needs: Yes (Glasses) Review of Systems Const All systems reviewed & are unremarkable except as noted in HPI and below Reports as per HPI and Reports no additional complaints GI Reports no additional complaints Reports no additional complaints Assessment & Plan Assessment & Plan (1) LGSIL on Pap smear of cervix: Comment: Cannot rule out high-grade LUIS/HPV E6 E7 positive Colpo and biopsy= negative, ECC no endocervical cells Code(s): R87.612 - Low grade squamous intraepithelial lesion on cytologic smear of cervix (LGSIL) Category: Medical Plan: Discussed with the patient the intraoperative findings, cervix flushed with the vaginal wall, unclear anatomical cervical margins, making the LEEP procedure unsafe to proceed , therefore the procedure with aborted. Explained to the patient that given the absence of endocervical cells, expectant management/Co testing in a year should be considered only if ECC is negative therefore recommended LEEP procedure; will refer to [facility] for further management. All questions answered, the patient verbalized understanding Instructed the patient to call our office back in case a referral appointment is not scheduled, missed or canceled so that we will assist on rescheduling another appointment, the patient verbalized understanding agreed with the plan. Coding Level of Care Code Est Pt Level 3 (33213) Diagnoses LGSIL on Pap smear of cervix R87.612
[2025-09-12 09:00] VITALS: BP 150/80; BMI 23.8
== END 2025-09-12 09:45 | disposition home or self-care (01) ==
LOC: HO.HWS 08:42
PROVIDERS: PCP Physician Assistant; Visit Provider Obstetrics & Gynecology
DX: R87.612 Low grade squamous intraepithelial lesion on cytologic smear of cervix (LGSIL) (principal)
CPT/HCPCS: 99213

== ENCOUNTER → 2025-09-12 08:41 | Outpatient (BNVA) | payer MEDICARE, OTHER, SELFPAY | PROVIDERS: PCP Physician Assistant; Visit Provider Obstetrics & Gynecology | DX: Z09 Encounter for follow-up examination after completed treatment for conditions other than malignant neoplasm (principal); R87.612 Low grade squamous intraepithelial lesion on cytologic smear of cervix (LGSIL) | CPT/HCPCS: 99212 ==